=== PATIENT | male | born 1945 | race Caucasian/White ===

== ENCOUNTER 2020-03-10 20:33 | Inpatient (IN) ==
[2020-03-10] MEDS ORDERED: ACETAMINOPHEN 500 MG TAB PO STA (21:20)
[2020-03-10] MEDS ORDERED: SODIUM CHLORIDE 0.9% 1000ML 1,000 ML IV SCH (21:30)
[2020-03-10] MEDS ORDERED: SODIUM CHLORIDE 0.9% 500 ML IV SCH (21:30)
[2020-03-10 22:40] LABS: Basophils # (auto) 0.01 K/uL (0-0.2); Basophils % (auto) 0.3 %; Eosinophils # (auto) 0.01 K/uL (0-0.5); Eosinophils % (auto) 0.3 %; Hematocrit (blood only) 44.3 % (42-52); Hemoglobin 15.2 g/dL (14.0-18.0); Lymphocytes # (auto) 0.73 K/uL (1.2-3.4); Lymphocytes % (auto) 21.2 %; Mean Corpuscular Hgb Conc 34.3 g/dL (32-36); Mean Corpuscular Volume 96.3 fL (80-100); Mean Platelet Volume 10.9 fL (7.4-10.4); Monocytes # (auto) 0.45 K/uL (0.11-0.59); Neutrophils # (auto) 2.25 K/uL (1.4-6.5); Neutrophils % (auto) 65.2 %; Platelet Count 103 K/uL (130-400); RDW Coefficient of Variation 13.5 % (11.5-14.5); RDW Standard Deviation 47.4 fL (36.4-46.3); White Blood Count 3.45 K/uL (4.8-10.8)
[2020-03-10 22:47] LABS: Appearance Urine Clear (Clear); Bilirubin Urine Negative (Negative); Blood Urine Negative (Negative); Color Urine Yellow; Glucose Urine UA Negative (Negative); Ketones Urine Negative (Negative); Leukocyte Esterase Urine Negative (Negative); Nitrite Urine Negative (Negative); Protein Urine Negative (Negative); Specific Gravity Urine 1.011 (1.000-1.030); Urobilinogen Urine Negative (Negative); pH Urine 7.5 (4.5-7.5)
[2020-03-10 22:58] LABS: Alanine Aminotransferase 23 U/L (12-78); Albumin Level 3.1 gm/dl (3.4-5.0); Aspartate Aminotransferase 22 U/L (15-37); BUN Creatinine Ratio 11.9 (10-20); Blood Urea Nitrogen 12 mg/dl (7-18); Calcium 8.2 mg/dl (8.5-10.1); Carbon Dioxide 26 mmol/L (21-32); Chloride 106 mmol/L (98-107); Est GFR (African American) 88.3; Est GFR (Non-African American) 76.2; Glucose 116 mg/dl (70-99); Potassium 3.9 mmol/L (3.5-5.1); Sodium 136 mmol/L (136-145)
[2020-03-10 23:01] LABS: Alkaline Phosphatase 69 U/L (45-117); Bilirubin,Total 0.8 mg/dl (0.2-1); Globulin 3.2 gm/dl (2.5-4.0); Total Protein 6.3 gm/dl (6.4-8.2)
[2020-03-10] MEDS ORDERED: cefTRIAXone SODIUM 2,000 MG/70 ML BAG IV STA (23:12)
[2020-03-10] MEDS ORDERED: AZITHROMYCIN 500 MG in DEXTROSE 5% 250 ML IV STA (23:35)
[2020-03-11 00:08] LABS: D Dimer 1050 ug/L FEU (0-500)
[2020-03-11] MEDS ORDERED: DEXAMETHASONE SOD INJ 10 MG/ML VIAL IV ONE (00:43)
--- NOTE | 2020-03-11 00:51 | History & Physical Report ---
Date of Service March 11, 2020 Assessment & Plan (1) Pneumonia due to 2019 novel coronavirus: Pneumonia due to COVID 19 virus infection- Admit to monitored bed, negative pressure. Give Decadron 10 mg IV now, then 6 mg IV every 8 hours. Ceftriaxone 2 g IV daily. Azithromycin 500 mg IV daily Guaifenesin extended release 600 mg p.o. twice daily. Duonebs Every 2 hours as needed. Present on Admission?: Yes (2) COVID-19 virus infection: See above Associated findings: thrombocytopenia---follow serially elevated D-dimer 1050--ordered CTA chest for PE protocol place on heparin drip, low dose, no bolus Present on Admission?: Yes (3) Chronic indwelling Shannon catheter: Continue. Follow urine culture and sensitivity Present on Admission?: Yes (4) Diabetes mellitus: Hold metformin. Place on Accu-Cheks before meals and at bedtime with NovoLog coverage per scale Present on Admission?: Yes (5) Thrombocytopenia: platelets 103 upon admission, continue to follow closely while on heparin. Present on Admission?: Yes (6) CAD (coronary artery disease): CAD/ status post CABG- follow serial troponins Present on Admission?: Yes (7) Hx of CABG: see above Present on Admission?: Yes History of Present Illness Chief Complaint: The patient presents to the emergency department with complaint of worsening shortness of breath and intermittently productive cough over the past few days, and had an episode of loose stools yesterday. Primary Care Provider: NO PCP The patient is a 74-year-old male with a past medical history including diabetes mellitus, and BPH with LUTS who presents with the above symptoms. He did undergo work-up in the emergency department including COVID-19 test which was positive, and d-dimer was elevated at 1050. He also does have a chronic indwelling Shannon catheter. Allergies Allergy/AdvReac Type Severity Reaction Status Date / Time Sulfa (Sulfonamide Allergy Hives Verified 03/10/20 23:11 Antibiotics) Home Medications Home Medications Medication Instructions Recorded Confirmed Type metformin 500 mg PO DAILY 03/10/20 03/10/20 History Past Med/Surg History Medical History (Updated 03/11/20 @ 01:46 by Alexis Blount MD) CAD (coronary artery disease) (Acute) Diabetes mellitus (Acute) Urinary incontinence Surgical History (Updated 03/11/20 @ 01:46 by Alexis Blount MD) Hx of CABG (Acute) Social History Smoking Status: Former smoker Preferred Language: German Feels Safe at Home: Yes Review of Systems Review of Systems: The patient denies palpitations, lower extremity swelling, sore throat, fevers, chills, sweats, nausea, vomiting, constipation, abdominal pain, pelvic pain, blood in urine or stool, lightheadedness, dizziness, headache, memory loss, loss of consciousness, rash, abnormal bruising or bleeding, imbalance, focal or generalized weakness, numbness or tingling in arms or legs, generalized arthralgias or myalgias, back or neck pain, or night sweats. The review of systems is otherwise negative other than for that already noted above, and at least 10 systems have been reviewed. Physical Exam Physical Exam: The patient is awake, alert and oriented 3, well developed and well nourished, normocephalic and atraumatic, sitting upright in bed and in no acute distress. HEENT--PERRL, EOMI, mucous membranes and oropharynx normal Neck--supple. No JVD. No bruits. Thyroid normal, trachea midline, no adenopathy. Heart--normal S1 and S2. No murmurs, rubs or gallops. Lungs--coarse breath sounds right base > left. no respiratory distress, no accessory muscle use. Abdomen--normal bowel sounds and soft. Nontender. Nondistended. Extremities--no cyanosis or clubbing. No edema. Dermatologic--normal skin turgor, normal color, no abnormal lymph nodes, no rash. Neurologic--cranial nerves II through XII grossly intact. Rheumatologic--normal range of motion. Psychiatric--normal affect. Results & Data Results & Data ([facility]) Vital Signs (Past 12 Hours) Vital Signs Temp Pulse Resp BP Pulse Ox 03/11/20 00:20 98.8 F 03/11/20 00:01 61 18 134/72 96 03/10/20 23:30 56 L 19 127/70 94 03/10/20 23:00 55 L 24 142/70 H 94 03/10/20 22:31 58 L 17 96 03/10/20 22:30 57 L 17 143/71 H 96 03/10/20 22:15 59 L 18 03/10/20 22:13 60 19 136/70 03/10/20 20:44 100.6 F H 69 18 119/71 92 Laboratory Results Laboratory Results WBC 3.45 K/uL (4.8-10.8) L 03/10/20 22:00 RBC 4.60 M/uL (4.7-6.1) L 03/10/20 22:00 Hgb 15.2 g/dL (14.0-18.0) 03/10/20 22:00 Hct 44.3 % (42-52) 03/10/20 22:00 MCV 96.3 fL (80-100) 03/10/20 22:00 MCH 33.0 pg (25-34) 03/10/20 22:00 MCHC 34.3 g/dL (32-36) 03/10/20 22:00 RDW Std Deviation 47.4 fL (36.4-46.3) H 03/10/20 22:00 RDW Coeff of Mona 13.5 % (11.5-14.5) 03/10/20 22:00 Plt Count 103 K/uL (130-400) L 03/10/20 22:00 MPV 10.9 fL (7.4-10.4) H 03/10/20 22:00 Immature Gran % (Auto) 0.0 % 03/10/20 22:00 Neut % (Auto) 65.2 % 03/10/20 22:00 Lymph % (Auto) 21.2 % 03/10/20 22:00 [place] % (Auto) 13.0 % 03/10/20 22:00 Eos % (Auto) 0.3 % 03/10/20 22:00 Baso % (Auto) 0.3 % 03/10/20 22:00 Neut # (Auto) 2.25 K/uL (1.4-6.5) 03/10/20 22:00 Lymph # (Auto) 0.73 K/uL (1.2-3.4) L 03/10/20 22:00 [place] # (Auto) 0.45 K/uL (0.11-0.59) 03/10/20 22:00 Eos # (Auto) 0.01 K/uL (0-0.5) 03/10/20 22:00 Baso # (Auto) 0.01 K/uL (0-0.2) 03/10/20 22:00 Immature Gran # (Auto) 0.00 K/uL (0.00-0.02) 03/10/20 22:00 D-Dimer 1050 ug/L FEU (0-500) H* 03/10/20 22:00 Sodium 136 mmol/L (136-145) 03/10/20 22:00 Potassium 3.9 mmol/L (3.5-5.1) 03/10/20 22:00 Chloride 106 mmol/L (98-107) 03/10/20 22:00 Carbon Dioxide 26 mmol/L (21-32) 03/10/20 22:00 Anion Gap 5.0 (3-11) 03/10/20 22:00 BUN 12 mg/dl (7-18) 03/10/20 22:00 Creatinine 0.98 mg/dl (0.6-1.4) 03/10/20 22:00 Est Cr Clr Drug Dosing Not Reportable 03/10/20 22:00 Est GFR ( Amer) 88.3 03/10/20 22:00 Est GFR (Non-Af Amer) 76.2 03/10/20 22:00 BUN/Creatinine Ratio 11.9 (10-20) 03/10/20 22:00 Glucose 116 mg/dl (70-99) H 03/10/20 22:00 Lactate 1.1 mmol/L (0.4-2.0) 03/11/20 00:05 Calcium 8.2 mg/dl (8.5-10.1) L 03/10/20 22:00 Total Bilirubin 0.8 mg/dl (0.2-1) 03/10/20 22:00 AST 22 U/L (15-37) 03/10/20 22:00 ALT 23 U/L (12-78) 03/10/20 22:00 Alkaline Phosphatase 69 U/L (45-117) 03/10/20 22:00 Total Protein 6.3 gm/dl (6.4-8.2) L 03/10/20 22:00 Albumin 3.1 gm/dl (3.4-5.0) L 03/10/20 22:00 Globulin 3.2 gm/dl (2.5-4.0) 03/10/20 22:00 Albumin/Globulin Ratio 1.0 (0.9-2) 03/10/20 22:00 Urine Color Yellow 03/10/20 21:55 Urine Appearance Clear (Clear) 03/10/20 21:55 Urine pH 7.5 (4.5-7.5) 03/10/20 21:55 Ur Specific [place] 1.011 (1.000-1.030) 03/10/20 21:55 Urine Protein Negative (Negative) 03/10/20 21:55 Urine Glucose (UA) Negative (Negative) 03/10/20 21:55 Urine Ketones Negative (Negative) 03/10/20 21:55 Urine Blood Negative (Negative) 03/10/20 21:55 Urine Nitrite Negative (Negative) 03/10/20 21:55 Urine Bilirubin Negative (Negative) 03/10/20 21:55 Urine Urobilinogen Negative (Negative) 03/10/20 21:55 Ur Leukocyte Esterase Negative (Negative) 03/10/20 21:55 COVID-19 Eval Order Covid19 Done at [facility] 03/10/20 Unknown COVID-19 PCR POSITIVE (Negative) A* 03/10/20 Unknown Nasopharyn COVID-19 PCR Cancelled 03/10/20 22:10 Sputum COVID-19 PCR Cancelled 03/10/20 22:10 Diagnostic Findings [facility] Patient: COURTNEY GRIFFITHS (Male) : 47 Status: ER Date: 03/11/20 01:18 Room #: History: R/O PE, COUGH POSITIVE COVID Slices: 755 Priors: Tech: Jerome Crump @ [phone] Exams: CTA CHEST Contrast: IV Amt: 118 ML OPTIRAY 320 Accession Numbers: [id number] Preliminary Findings Only See Final Report For Complete Findings CTA CHEST: The thoracic aorta is mildly calcified but nondilated. There is no aneurysm or dissection. The pulmonary arterial tree is well opacified with contrast. No pulmonary emboli are identified. Previous sternotomy, likely CABG. There is mild cardiomegaly and severe coronary calcification. No pericardial effusion is seen. Lung windows reveal scattered rounded areas of ground glass opacity and interstitial infiltrates in the periphery of the lungs bilaterally consistent with mild Covid-19 pneumonia. There is mild emphysema as well. No pneumothorax is seen. There is a trace amount of pleural fluid measuring 2 mm bilaterally. Limited images of the upper rounded there is a cholecystectomy changes. There is also reflux of contrast into the hepatic vein suggesting mild CHF. Mild multilevel degenerative changes in the thoracic spine. No fracture or bone lesion. Radiologist: Mario Taylor MD Study ready at 01:22 and initial results transmitted at 01:41 *This report constitutes a preliminary interpretation only. Non-acute findings felt to be unrelated to the clinical presentation may not be discussed in this report. The study will be interpreted and a final report will be generated by the local Radiologist the following shift. To reach the hospital radiology department call [phone]. If a discrepancy is found between the preliminary and final interpretations of this study, please notify us via our Client Portal at [email or web address].You can also fax this report with a description of the discrepancy, or include the final report, to our daytime fax number [phone].If faxing, please indicate the severity of discrepancy using one of the following categories: [ ] 1 - Agree/Informational [ ] 2 - Unlikely to Affect Management [ ] 3 - Possible Eventual Change of Management [ ] 4 - Probable Immediate Change of Management For all other patient related information, please fax us at [phone]. [id number] Code Status & VTE Plan Code Status Full code VTE Prophylaxis Plan VTE Prophylaxis will be ordered: Yes PG Care Time/CCT Total # of Minutes Spent Total Time Spent with Patient: Total time spent is greater than 50% in coordination of care (as documented) at patient's floor/unit and/or counseling patient: Coding Level of Care Code 45637 Initial Inpt Care Lvl 3 Diagnoses Pneumonia due to 2019 novel coronavirus U07.1; J12.89 COVID-19 virus infection U07.1 Chronic indwelling Shannon catheter Z97.8 Diabetes mellitus E11.9 Thrombocytopenia D69.6 CAD (coronary artery disease) I25.10 Associated angina: without angina Coronary Disease-Associated Artery/Lesion type: unspecified vessel or lesion type [place] vs. transplanted heart: [place] heart Hx of CABG Z95.1 (1) CAD (coronary artery disease) Associated angina: without angina Coronary Disease-Associated Artery/Lesion type: unspecified vessel or lesion type [place] vs. transplanted heart: [place] heart Qualified Code(s): I25.10 - Atherosclerotic heart disease of [place] coronary artery without angina pectoris
[2020-03-11 01:15] LABS: Partial Thromboplastin Ratio 1.1; Partial Thromboplastin Time 29.4 Seconds (21.0-31.0)
[2020-03-11] MEDS ORDERED: OPTIRAY 320 125ml IV ONE (01:20)
--- NOTE | 2020-03-11 01:24 | Emergency Department Note ---
History of Present Illness General Chief complaint: Fever Stated complaint: FEVER,POSSIBLE STREP, SORE THROAT Time Seen by Provider: 03/10/20 20:52 Source: patient and RN notes reviewed Mode of arrival: ambulatory Limitations: no limitations History of Present Illness Provider complaint: Fever, sore throat, cough Maximum Pain Intensity: 0 This patient is a 74-year-old male who presents to the emergency department with complaints of sore throat, fever, cough. Patient states he drove here from [place] to visit his daughter. Earlier today he began to develop some generalized ill feelings. His daughter had planned an offloading jeep experience which he felt guilty postponing. He did the excursion despite feeling ill. When they returned home he was noted to be febrile. He states he has been coughing with mild shortness of breath. He does believe it is productive. Patient denies any nausea, significant abdominal pain but does admit to an episode of runny diarrhea. He has not had any further diarrhea since earlier this afternoon. He denies any blood in the stools. Of note the patient does have a chronic condom catheter in place for urinary dribbling after prostate surgery. Home Medications Home Medications Medication Instructions Recorded Confirmed Type metformin 500 mg PO DAILY 03/10/20 03/10/20 History Allergies Allergy/AdvReac Type Severity Reaction Status Date / Time Sulfa (Sulfonamide Allergy Hives Verified 03/10/20 23:11 Antibiotics) Past Med/Surg History Medical History (Updated 03/11/20 @ 01:34 by Cande Plunkett MD) Diabetes mellitus (Acute) Urinary catheter in place Condom catheter Urinary incontinence Social History Smoking Status: Former smoker Preferred Language: Turkmen Feels Safe at Home: Yes Review of Systems See HPI for pertinent positives & negatives. and A total of 10 systems reviewed and were otherwise negative Physical Exam Vital Signs Vital Signs - 24 hr 03/10/20 20:44 03/10/20 22:13 03/10/20 22:15 Temperature 38.1 C H Temperature Source Oral Pulse Rate 69 60 59 L Pulse Rate from SpO2 Sensor Pulse Rhythm Regular Pulse Strength Normal Respiratory Rate 18 19 18 Respiratory Effort / Characteristics Non-Labored Spontaneous Respiratory Depth Normal Respiratory Pattern Regular Blood Pressure 119/71 136/70 Blood Pressure Mean 87 101 Blood Pressure Position Sitting Pulse Oximetry 92 Oxygen Delivery Method Room Air Sepsis Recent Fever Within 48 Hours Yes Sepsis New/Unexplained Change in Mental Status No Sepsis Action Taken by Nursing No Action Required 03/10/20 22:30 03/10/20 22:31 03/10/20 23:00 Temperature Temperature Source Pulse Rate 57 L 58 L 55 L Pulse Rate from SpO2 Sensor 57 L 58 L 55 L Pulse Rhythm Pulse Strength Respiratory Rate 17 17 24 Respiratory Effort / Characteristics Respiratory Depth Respiratory Pattern Blood Pressure 143/71 H 142/70 H Blood Pressure Mean 96 110 Blood Pressure Position Pulse Oximetry 96 96 94 Oxygen Delivery Method Room Air Sepsis Recent Fever Within 48 Hours Sepsis New/Unexplained Change in Mental Status Sepsis Action Taken by Nursing 03/10/20 23:30 03/11/20 00:01 03/11/20 00:20 Temperature 37.1 C Temperature Source Oral Pulse Rate 56 L 61 Pulse Rate from SpO2 Sensor 55 L 59 L Pulse Rhythm Pulse Strength Respiratory Rate 19 18 Respiratory Effort / Characteristics Respiratory Depth Respiratory Pattern Blood Pressure 127/70 134/72 Blood Pressure Mean 99 108 Blood Pressure Position Pulse Oximetry 94 96 Oxygen Delivery Method Room Air Sepsis Recent Fever Within 48 Hours Sepsis New/Unexplained Change in Mental Status Sepsis Action Taken by Nursing Vital signs reviewed. Noted to be febrile. General: Somewhat ill-appearing 74-year-old male, in no significant distress. Sitting up at the bedside. HEENT: No scleral icterus, PERRLA, neck supple. Atraumatic. Cardiovascular: Regular rate and rhythm, no extra sounds. Pulmonary: Faint crackles bilaterally, normal work of breathing. Abdomen: Soft, nontender, nondistended, positive bowel sounds. Musculoskeletal: Atraumatic, no peripheral edema. : Condom catheter in place draining a dark but clear yellow urine. Neurologic: Patient awake alert and oriented x 3 Skin: Warm, dry, no rash Course Administered Medications Sodium Chloride (Nss 1000ml) 1,000 mls @ 100 mls/hr IV .Q10H VERONIKA Stop: 03/11/20 07:29 Last Admin: 03/10/20 22:52 Dose: 100 mls/hr Documented by: [id number] Azithromycin 500 mg/ Dextrose 255 mls @ 125 mls/hr IV NOW STA Stop: 03/11/20 01:37 Last Admin: 03/11/20 00:17 Dose: 125 mls/hr Documented by: [id number] Discontinued Medications Acetaminophen (Tylenol) 1,000 mg PO ONE STA Stop: 03/10/20 21:21 Last Admin: 08/11/20 22:52 Dose: 1,000 mg Documented by: [id number] Sodium Chloride (Nss) 500 mls @ 999 mls/hr IV .Q31M VERONIKA Stop: 03/10/20 22:00 Last Infusion: 03/10/20 23:28 Dose: 0 mls/hr Documented by: [id number] Admin: 03/10/20 22:52 Dose: 999 mls/hr Documented by: [id number] Ceftriaxone Sodium (Rocephin) 2,000 mg in 70 mls @ 140 mls/hr IV NOW STA Stop: 03/10/20 23:41 Last Infusion: 03/11/20 00:24 Dose: 0 mls/hr Documented by: [id number] Admin: 03/10/20 23:54 Dose: 140 mls/hr Documented by: [id number] Ioversol (Optiray 320 125ml) 125 ml IV ONCE ONE Stop: 03/11/20 01:21 Last Admin: 03/11/20 01:20 Dose: 118 ml Documented by: [id number] Medical Decision Making Differential Diagnosis Differential diagnosis: Etiologies such as viral syndrome, otitis, pharyngitis, pneumonia, influenza, meningitis, urinary tract infection, septic arthritis, soft tissue infectious process, intra-abdominal process, sepsis, bacteremia, as well as others were entertained. Home Medications Current Medication List: was personally reviewed by me Laboratory Data Attestation: I reviewed the patient's lab results. Result diagrams: 03/10/20 22:00 03/10/20 22:00 Lab Results 03/10/20 03/10/20 03/10/20 Range/Units 21:55 22:00 22:00 WBC 3.45 L (4.8-10.8) K/uL RBC 4.60 L (4.7-6.1) M/uL Hgb 15.2 (14.0-18.0) g/dL Hct 44.3 (42-52) % MCV 96.3 (80-100) fL MCH 33.0 (25-34) pg MCHC 34.3 (32-36) g/dL RDW Std Deviation 47.4 H (36.4-46.3) fL RDW Coeff of Mona 13.5 (11.5-14.5) % Plt Count 103 L (130-400) K/uL MPV 10.9 H (7.4-10.4) fL Immature Gran % (Auto) 0.0 % Neut % (Auto) 65.2 % Lymph % (Auto) 21.2 % [place] % (Auto) 13.0 % Eos % (Auto) 0.3 % Baso % (Auto) 0.3 % Neut # (Auto) 2.25 (1.4-6.5) K/uL Lymph # (Auto) 0.73 L (1.2-3.4) K/uL [place] # (Auto) 0.45 (0.11-0.59) K/uL Eos # (Auto) 0.01 (0-0.5) K/uL Baso # (Auto) 0.01 (0-0.2) K/uL Immature Gran # (Auto) 0.00 (0.00-0.02) K/uL APTT (21.0-31.0) Seconds PTT Ratio D-Dimer (0-500) ug/L FEU Sodium 136 (136-145) mmol/L Potassium 3.9 (3.5-5.1) mmol/L Chloride 106 (98-107) mmol/L Carbon Dioxide 26 (21-32) mmol/L Anion Gap 5.0 (3-11) BUN 12 (7-18) mg/dl Creatinine 0.98 (0.6-1.4) mg/dl Est Cr Clr Drug Dosing Not Reportable Est GFR ( Amer) 88.3 Est GFR (Non-Af Amer) 76.2 BUN/Creatinine Ratio 11.9 (10-20) Glucose 116 H (70-99) mg/dl Lactate (0.4-2.0) mmol/L Calcium 8.2 L (8.5-10.1) mg/dl Total Bilirubin 0.8 (0.2-1) mg/dl AST 22 (15-37) U/L ALT 23 (12-78) U/L Alkaline Phosphatase 69 (45-117) U/L Total Protein 6.3 L (6.4-8.2) gm/dl Albumin 3.1 L (3.4-5.0) gm/dl Globulin 3.2 (2.5-4.0) gm/dl Albumin/Globulin Ratio 1.0 (0.9-2) Urine Color Yellow Urine Appearance Clear (Clear) Urine pH 7.5 (4.5-7.5) Ur Specific [place] 1.011 (1.000-1.030) Urine Protein Negative (Negative) Urine Glucose (UA) Negative (Negative) Urine Ketones Negative (Negative) Urine Blood Negative (Negative) Urine Nitrite Negative (Negative) Urine Bilirubin Negative (Negative) Urine Urobilinogen Negative (Negative) Ur Leukocyte Esterase Negative (Negative) COVID-19 Eval Order COVID-19 PCR (Negative) Nasopharyn COVID-19 PCR Sputum COVID-19 PCR 03/10/20 03/10/20 03/10/20 Range/Units 22:00 22:10 22:10 WBC (4.8-10.8) K/uL RBC (4.7-6.1) M/uL Hgb (14.0-18.0) g/dL Hct (42-52) % MCV (80-100) fL MCH (25-34) pg MCHC (32-36) g/dL RDW Std Deviation (36.4-46.3) fL RDW Coeff of Mona (11.5-14.5) % Plt Count (130-400) K/uL MPV (7.4-10.4) fL Immature Gran % (Auto) % Neut % (Auto) % Lymph % (Auto) % [place] % (Auto) % Eos % (Auto) % Baso % (Auto) % Neut # (Auto) (1.4-6.5) K/uL Lymph # (Auto) (1.2-3.4) K/uL [place] # (Auto) (0.11-0.59) K/uL Eos # (Auto) (0-0.5) K/uL Baso # (Auto) (0-0.2) K/uL Immature Gran # (Auto) (0.00-0.02) K/uL APTT (21.0-31.0) Seconds PTT Ratio D-Dimer 1050 H* (0-500) ug/L FEU Sodium (136-145) mmol/L Potassium (3.5-5.1) mmol/L Chloride (98-107) mmol/L Carbon Dioxide (21-32) mmol/L Anion Gap (3-11) BUN (7-18) mg/dl Creatinine (0.6-1.4) mg/dl Est Cr Clr Drug Dosing Est GFR ( Amer) Est GFR (Non-Af Amer) BUN/Creatinine Ratio (10-20) Glucose (70-99) mg/dl Lactate (0.4-2.0) mmol/L Calcium (8.5-10.1) mg/dl Total Bilirubin (0.2-1) mg/dl AST (15-37) U/L ALT (12-78) U/L Alkaline Phosphatase (45-117) U/L Total Protein (6.4-8.2) gm/dl Albumin (3.4-5.0) gm/dl Globulin (2.5-4.0) gm/dl Albumin/Globulin Ratio (0.9-2) Urine Color Urine Appearance (Clear) Urine pH (4.5-7.5) Ur Specific [place] (1.000-1.030) Urine Protein (Negative) Urine Glucose (UA) (Negative) Urine Ketones (Negative) Urine Blood (Negative) Urine Nitrite (Negative) Urine Bilirubin (Negative) Urine Urobilinogen (Negative) Ur Leukocyte Esterase (Negative) COVID-19 Eval Order Cancelled COVID-19 PCR (Negative) Nasopharyn COVID-19 PCR Cancelled Sputum COVID-19 PCR Cancelled 03/10/20 03/10/20 03/11/20 Range/Units Unknown Unknown 00:05 WBC (4.8-10.8) K/uL RBC (4.7-6.1) M/uL Hgb (14.0-18.0) g/dL Hct (42-52) % MCV (80-100) fL MCH (25-34) pg MCHC (32-36) g/dL RDW Std Deviation (36.4-46.3) fL RDW Coeff of Mona (11.5-14.5) % Plt Count (130-400) K/uL MPV (7.4-10.4) fL Immature Gran % (Auto) % Neut % (Auto) % Lymph % (Auto) % [place] % (Auto) % Eos % (Auto) % Baso % (Auto) % Neut # (Auto) (1.4-6.5) K/uL Lymph # (Auto) (1.2-3.4) K/uL [place] # (Auto) (0.11-0.59) K/uL Eos # (Auto) (0-0.5) K/uL Baso # (Auto) (0-0.2) K/uL Immature Gran # (Auto) (0.00-0.02) K/uL APTT (21.0-31.0) Seconds PTT Ratio D-Dimer (0-500) ug/L FEU Sodium (136-145) mmol/L Potassium (3.5-5.1) mmol/L Chloride (98-107) mmol/L Carbon Dioxide (21-32) mmol/L Anion Gap (3-11) BUN (7-18) mg/dl Creatinine (0.6-1.4) mg/dl Est Cr Clr Drug Dosing Est GFR ( Amer) Est GFR (Non-Af Amer) BUN/Creatinine Ratio (10-20) Glucose (70-99) mg/dl Lactate 1.1 (0.4-2.0) mmol/L Calcium (8.5-10.1) mg/dl Total Bilirubin (0.2-1) mg/dl AST (15-37) U/L ALT (12-78) U/L Alkaline Phosphatase (45-117) U/L Total Protein (6.4-8.2) gm/dl Albumin (3.4-5.0) gm/dl Globulin (2.5-4.0) gm/dl Albumin/Globulin Ratio (0.9-2) Urine Color Urine Appearance (Clear) Urine pH (4.5-7.5) Ur Specific [place] (1.000-1.030) Urine Protein (Negative) Urine Glucose (UA) (Negative) Urine Ketones (Negative) Urine Blood (Negative) Urine Nitrite (Negative) Urine Bilirubin (Negative) Urine Urobilinogen (Negative) Ur Leukocyte Esterase (Negative) COVID-19 Eval Order Covid19 Done at [facility] COVID-19 PCR POSITIVE A* (Negative) Nasopharyn COVID-19 PCR Sputum COVID-19 PCR 03/11/20 Range/Units 00:05 WBC (4.8-10.8) K/uL RBC (4.7-6.1) M/uL Hgb (14.0-18.0) g/dL Hct (42-52) % MCV (80-100) fL MCH (25-34) pg MCHC (32-36) g/dL RDW Std Deviation (36.4-46.3) fL RDW Coeff of Mona (11.5-14.5) % Plt Count (130-400) K/uL MPV (7.4-10.4) fL Immature Gran % (Auto) % Neut % (Auto) % Lymph % (Auto) % [place] % (Auto) % Eos % (Auto) % Baso % (Auto) % Neut # (Auto) (1.4-6.5) K/uL Lymph # (Auto) (1.2-3.4) K/uL [place] # (Auto) (0.11-0.59) K/uL Eos # (Auto) (0-0.5) K/uL Baso # (Auto) (0-0.2) K/uL Immature Gran # (Auto) (0.00-0.02) K/uL APTT 29.4 (21.0-31.0) Seconds PTT Ratio 1.1 D-Dimer (0-500) ug/L FEU Sodium (136-145) mmol/L Potassium (3.5-5.1) mmol/L Chloride (98-107) mmol/L Carbon Dioxide (21-32) mmol/L Anion Gap (3-11) BUN (7-18) mg/dl Creatinine (0.6-1.4) mg/dl Est Cr Clr Drug Dosing Est GFR ( Amer) Est GFR (Non-Af Amer) BUN/Creatinine Ratio (10-20) Glucose (70-99) mg/dl Lactate (0.4-2.0) mmol/L Calcium (8.5-10.1) mg/dl Total Bilirubin (0.2-1) mg/dl AST (15-37) U/L ALT (12-78) U/L Alkaline Phosphatase (45-117) U/L Total Protein (6.4-8.2) gm/dl Albumin (3.4-5.0) gm/dl Globulin (2.5-4.0) gm/dl Albumin/Globulin Ratio (0.9-2) Urine Color Urine Appearance (Clear) Urine pH (4.5-7.5) Ur Specific [place] (1.000-1.030) Urine Protein (Negative) Urine Glucose (UA) (Negative) Urine Ketones (Negative) Urine Blood (Negative) Urine Nitrite (Negative) Urine Bilirubin (Negative) Urine Urobilinogen (Negative) Ur Leukocyte Esterase (Negative) COVID-19 Eval Order COVID-19 PCR (Negative) Nasopharyn COVID-19 PCR Sputum COVID-19 PCR Imaging Data Attestation: I personally reviewed and interpreted this imaging study as follows: My Impression: Chest x-ray: Patchy infiltrate on the left lower lung field and right middle lobe. Post surgical changes noted to the sternum. ECG Data Attestation: I personally reviewed and interpreted this ECG as follows: Indication: + chest pain and + SOB/dyspnea Rate (beats per minute): 73 Rhythm: + sinus bradycardia ECG Intervals/blocks: + Normal QT-c ECG ST segments: + T-wave inversions (Inferior) and + Nonspecific ST abnormalities ECG Findings: + Q waves (Inferior); no PACs and no PVCs Blood Pressure Blood Pressure Findings: Normal blood pressure Blood Pressure Disposition: did not require urgent referral MDM Narrative This patient was evaluated and appeared to be in no significant distress. Patient does appear to be somewhat ill and is noted to have a fever. Patient was given p.o. Tylenol. An order for cardiac monitoring was placed and the pa tient is noted to be in a sinus bradycardia at 61 bpm. Patient's oxygen saturations are stable. Laboratory work was obtained and reveals a mild leukopenia. Chest x-ray was performed and to my interpretation reveals patchy infiltrates suggestive of pneumonia. Patient was given IV ceftriaxone and IV azithromycin after blood cultures were obtained. A COVID swab was performed and is positive on rapid testing. Patient did receive IV hydration and was informed of the findings. I did contact his daughter at his request. She was informed of the findings. The patient will be evaluated by the hospitalist service for admission and further management. Impression & Plan Pneumonia due to 2019 novel coronavirus, Diabetes mellitus, CAD (coronary artery disease), Hx of CABG Discharge Plan Visit Data Chief Complaint: Fever Stated Complaint: FEVER,POSSIBLE STREP, SORE THROAT ED Provider: Cande Plunkett Discharge Problem: Pneumonia due to 2019 novel coronavirus, Diabetes mellitus, CAD (coronary artery disease), Hx of CABG Forms Stand Alone Forms: My [facility] [employer] Prescriptions Prescriptions: No Action metformin 500 mg tablet extended release 24 hr 500 mg PO DAILY RF: 0 Discharge Problem: Diabetes mellitus Qualifiers: Diabetes mellitus type: type 2 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 transplanted heart: [place] heart Associated angina: without angina Qualified Code(s): I25.10 - Atherosclerotic heart disease of [place] coronary artery without angina pectoris
[2020-03-11] MEDS ORDERED: HEPARIN 25000 UNIT/500 ML D5W IV ONE (01:33)
[2020-03-11] MEDS: Heparin IV Low Dose *NO* Bolus IV SCH ×5 (01:42→04:50)
[2020-03-11] MEDS: HEPARIN SODIUM/DEXTROSE 25,000 UNITS/500 ML BAG IV SCH (01:55)
--- NOTE | 2020-03-11 06:14 | CT Scan Report ---
CT angio chest PE protocol CT DOSE: 737.97 mGy.cm HISTORY: Chest pain. Dyspnea. PE TECHNIQUE: Multiaxial CT images of the chest were performed following the intravenous administration of contrast to evaluate the pulmonary arteries. Maximal intensity projection images were also obtaine d. A dose lowering technique was utilized adhering to the principles of ALARA. COMPARISON STUDY: None. FINDINGS: There is a normal caliber thoracic aorta with no evidence for dissection. There is no evide nce for pulmonary embolus. No pleural effusions. No pneumothorax. The liver and spleen are unremarkab le. No mediastinal or hilar lymphadenopathy. Patchy parenchymal groundglass parenchymal infiltrative changes throughout both hemithoraces. IMPRESSION: No evidence for pulmonary embolus. Diffuse bilateral patchy parenchymal infiltrative change. ACT 112: Negative or not required by law. The above report was generated using voice recognition software. It may contain grammatical, syntax or spelling errors. Electronically signed by: Mick Pinzon M.D. 03/11/2020 6:13 AM
[2020-03-11] MEDS: NSS + 20MEQ KCL 20 MEQ/1,000 ML BAG IV SCH ×2 (06:25→16:36)
--- NOTE | 2020-03-11 07:29 | XRay Report ---
XR chest 1V portable CLINICAL HISTORY: SOB, CP dyspnea COMPARISON STUDY: No previous studies for comparison. FINDINGS: Mild cardiomegaly. Prior median sternotomy. Interstitial infiltrate left mid to lower lung. Right lung is considered clear for IMPRESSION: Mild cardiomegaly. Interstitial infiltrate left mid and lower lung. ACT 112: Negative or not required by law. The above report was generated using voice recognition software. It may contain grammatical, syntax or spelling errors. Electronically signed by: Mick Pinzon M.D. 03/11/2020 7:28 AM
[2020-03-11 08:27] LABS: Basophils # (auto) 0.01 K/uL (0-0.2); Basophils % (auto) 0.4 %; Hematocrit (blood only) 52.5 % (42-52); Hemoglobin 17.7 g/dL (14.0-18.0); Immature Granulocytes # (auto) 0.01 K/uL (0.00-0.02); Immature Granulocytes % (auto) 0.4 %; Lymphocytes # (auto) 0.78 K/uL (1.2-3.4); Lymphocytes % (auto) 28.9 %; Mean Corpuscular Hemoglobin 32.6 pg (25-34); Mean Corpuscular Hgb Conc 33.7 g/dL (32-36); Mean Corpuscular Volume 96.7 fL (80-100); Mean Platelet Volume 11.1 fL (7.4-10.4); Monocytes # (auto) 0.14 K/uL (0.11-0.59); Monocytes % (auto) 5.2 %; Neutrophils # (auto) 1.76 K/uL (1.4-6.5); Neutrophils % (auto) 65.1 %; Platelet Count 116 K/uL (130-400); RDW Coefficient of Variation 13.6 % (11.5-14.5); RDW Standard Deviation 48.5 fL (36.4-46.3); Red Blood Count 5.43 M/uL (4.7-6.1)
[2020-03-11] MEDS: guaiFENesin 600 MG TABCR PO SCH ×2 (08:28→20:27)
[2020-03-11 08:40] LABS: Prothrombin Time 10.9 Seconds (9.0-12.0)
[2020-03-11 08:52] LABS: Alanine Aminotransferase 24 U/L (12-78); Albumin Level 3.4 gm/dl (3.4-5.0); Aspartate Aminotransferase 25 U/L (15-37); BUN Creatinine Ratio 9.9 (10-20); Blood Urea Nitrogen 12 mg/dl (7-18); Calcium 8.5 mg/dl (8.5-10.1); Carbon Dioxide 28 mmol/L (21-32); Chloride 104 mmol/L (98-107); Creatinine Clr Calc Pharmacy 70.6 ml/min; Est GFR (Non-African American) 62.1; Glucose 247 mg/dl (70-99); Potassium 4.2 mmol/L (3.5-5.1); Sodium 137 mmol/L (136-145)
[2020-03-11 08:57] LABS: Albumin Globulin Ratio 0.9 (0.9-2); Alkaline Phosphatase 79 U/L (45-117); Bilirubin,Total 0.7 mg/dl (0.2-1); Globulin 3.9 gm/dl (2.5-4.0); Total Protein 7.3 gm/dl (6.4-8.2); Troponin I < 0.015 ng/ml (0-0.045)
[2020-03-11 09:12] LABS: Partial Thromboplastin Ratio 1.7
[2020-03-11 09:14] LABS: Partial Thromboplastin Time 47.3 Seconds (21.0-31.0)
[2020-03-11] MEDS ORDERED: REMDESIVIR 200 mg: Day 1 IV ONE (12:30)
[2020-03-11 13:30] LABS: Alanine Aminotransferase 24 U/L (12-78); Alkaline Phosphatase 70 U/L (45-117); Aspartate Aminotransferase 22 U/L (15-37); Bilirubin Direct 0.1 mg/dl (0-0.2); Bilirubin,Total 0.6 mg/dl (0.2-1); C Reactive Protein 2.39 mg/dl (0-0.29); Ferritin 129.7 ng/ml (8-388); Total Protein 6.5 gm/dl (6.4-8.2); Troponin I < 0.015 ng/ml (0-0.045)
[2020-03-11] MEDS: NSS 30mL Flush, Days 1-5 IV SCH (15:07)
[2020-03-11] MEDS: cefTRIAXone SODIUM 2,000 MG in DEXTROSE 5% 50 ML IV SCH (20:23)
[2020-03-11] MEDS: INSULIN ASPART 100 UNITS/ML 3 ML PEN SC SCH (20:45)
[2020-03-11] MEDS ORDERED: CARBOHYDRATES FOR HYPOGLYCEMIA PO PRN (20:49)
[2020-03-11] MEDS ORDERED: DEXTROSE 50% 50 ML SYRINGE IV PRN (20:49)
[2020-03-11] MEDS ORDERED: GLUCAGON FOR INJ 1 MG VIAL SQ PRN (20:49)
[2020-03-11] MEDS ORDERED: GLUCOSE 40% GEL 15 GM TUBE PO PRN (21:00)
[2020-03-11] MEDS ORDERED: GLUCOSE 10 TABS/TUBE PO PRN (21:00)
[2020-03-11] MEDS ORDERED: DOCUSATE SODIUM 100 MG CAP PO ONE (21:01)
[2020-03-11] MEDS: AZITHROMYCIN 500 MG in DEXTROSE 5% 250 ML IV SCH (21:34)
[2020-03-12] MEDS: NSS + 20MEQ KCL 20 MEQ/1,000 ML BAG IV SCH ×3 (00:43→13:16)
[2020-03-12] MEDS: HEPARIN SODIUM/DEXTROSE 25,000 UNITS/500 ML BAG IV SCH ×2 (01:00→02:27)
--- NOTE | 2020-03-12 06:07 | Electrocardiogram Report ---
Test Reason : Blood Pressure : / mmHG Vent. Rate : 058 BPM Atrial Rate : 058 BPM P-R Int : 204 ms QRS Dur : 098 ms QT Int : 402 ms P-R-T Axes : 044 -19 -11 degrees QTc Int : 394 ms Sinus bradycardia Inferior infarct , age undetermined Nonspecific T wave abnormality Abnormal ECG No previous ECGs available Confirmed by Mñeo Coleman ([id number]) on 03/12/2020 6:07:46 AM Referred By: REFERRED SELF Confirmed By:Meño Coleman
[2020-03-12 06:34] LABS: Basophils # (auto) 0.01 K/uL (0-0.2); Basophils % (auto) 0.2 %; Hematocrit (blood only) 44.6 % (42-52); Hemoglobin 15.1 g/dL (14.0-18.0); Immature Granulocytes # (auto) 0.01 K/uL (0.00-0.02); Immature Granulocytes % (auto) 0.2 %; Lymphocytes # (auto) 0.86 K/uL (1.2-3.4); Lymphocytes % (auto) 15.3 %; Mean Corpuscular Hemoglobin 32.1 pg (25-34); Mean Corpuscular Hgb Conc 33.9 g/dL (32-36); Mean Corpuscular Volume 94.9 fL (80-100); Mean Platelet Volume 11.1 fL (7.4-10.4); Monocytes # (auto) 0.49 K/uL (0.11-0.59); Monocytes % (auto) 8.7 %; Neutrophils # (auto) 4.25 K/uL (1.4-6.5); Neutrophils % (auto) 75.6 %; Platelet Count 111 K/uL (130-400); RDW Coefficient of Variation 13.3 % (11.5-14.5); RDW Standard Deviation 46.4 fL (36.4-46.3); White Blood Count 5.62 K/uL (4.8-10.8)
[2020-03-12 07:01] LABS: INR 1.1 (0.9-1.1); Partial Thromboplastin Ratio 1.7; Prothrombin Time 11.2 Seconds (9.0-12.0)
[2020-03-12 07:06] LABS: Albumin Level 2.7 gm/dl (3.4-5.0); BUN Creatinine Ratio 16.8 (10-20); Calcium 8.3 mg/dl (8.5-10.1); Creatinine Clr Calc Pharmacy 85.3 ml/min; Est GFR (African American) 90.5; Est GFR (Non-African American) 78.1; Partial Thromboplastin Time 47.8 Seconds (21.0-31.0); Potassium 4.1 mmol/L (3.5-5.1)
[2020-03-12 07:09] LABS: Albumin Globulin Ratio 0.9 (0.9-2); Bilirubin,Total 0.4 mg/dl (0.2-1); Total Protein 5.7 gm/dl (6.4-8.2)
[2020-03-12] MEDS: guaiFENesin 600 MG TABCR PO SCH ×2 (08:29→21:11)
[2020-03-12] MEDS: INSULIN ASPART 100 UNITS/ML 3 ML PEN SC SCH ×4 (08:55→22:39)
--- NOTE | 2020-03-12 13:05 | XRay Report ---
XR chest 1V portable HISTORY: 74 years-old Male sob acute shortness of breath COMPARISON: CTA of the chest 03/11/2020, chest radiograph 03/10/2020 TECHNIQUE: Portable AP view of the chest FINDINGS: Cardiac silhouette is mildly enlarged. Prior median sternotomy. There is mildly improved aeration of the left lung base with minimal persistent left lung base opacities. Degenerative changes of the shou lders and spine. IMPRESSION: 1. Cardiomegaly without acute process. 2. Minimal left lung base opacities suggest atelectasis. ACT 112: Negative or not required by law. The above report was generated using voice recognition software. It may contain grammatical, syntax o r spelling errors. Electronically signed by: Rodrigo Becerril M.D. 03/12/2020 1:03 PM
[2020-03-12] MEDS: ACETAMINOPHEN 325 MG TAB PO PRN ×2 (13:32→17:40)
[2020-03-12] MEDS: REMDESIVIR 100mg: Days 2-5 IV SCH (14:31)
[2020-03-12] MEDS: NSS 30mL Flush, Days 1-5 IV SCH (15:52)
[2020-03-12] MEDS ORDERED: DEXAMETHASONE SOD PHOSPHATE 6 MG in SYRINGE 0 ML IV SCH (16:00)
[2020-03-12] MEDS: cefTRIAXone SODIUM 2,000 MG in DEXTROSE 5% 50 ML IV SCH (21:10)
--- NOTE | 2020-03-12 21:30 | Hospitalist Progress Note ---
Date of Service March 12, 2020 Assessment & Plan (1) Pneumonia due to 2019 novel coronavirus: Pneumonia due to COVID 19 virus infection- Admit to monitored bed, negative pressure. Received 10 mg of decadron on admission. This is stopped as patient is not requiring oxygen. Ceftriaxone 2 g IV daily. Azithromycin 500 mg IV daily Guaifenesin extended release 600 mg p.o. twice daily. Duonebs Every 2 hours as needed. Placed on remdesevir. First dose 03/11 (2) COVID-19 virus infection: See above Associated findings: thrombocytopenia---follow serially elevated D-dimer 1050--ordered CTA chest for PE protocol place on heparin drip, low dose, no bolus (3) Diabetes mellitus: Hold metformin. Place on Accu-Cheks before meals and at bedtime with NovoLog coverage per scale (4) Thrombocytopenia: platelets 103 upon admission, continue to follow closely while on heparin. (5) CAD (coronary artery disease): CAD/ status post CABG- follow serial troponins (6) Hx of CABG: see above Admission and Anticipated Discharge Date Admission Date: March 11, 2020 Subjective 74 yo male reports feeling worse today. He has more difficulty breathing. He has is also feeling warm today. Patient initially was concerned about receiving remdesevir, however after explaining side effects and risks as well as benefits. Patient is agreeable to continue with remdesevir today. Review of Systems Review of Systems: All systems reviewed & are unremarkable except as noted in HPI & below Physical Exam Physical Exam: The patient is awake, alert and oriented 3, well developed and well nourished, normocephalic and atraumatic, sitting upright in bed and in no acute distress. HEENT--PERRL, EOMI, mucous membranes and oropharynx normal Neck--supple. No JVD. No bruits. Thyroid normal, trachea midline, no adenopathy. Heart--normal S1 and S2. No murmurs, rubs or gallops. Lungs--bilateral coarse breath sounds. no respiratory distress, no accessory muscle use. Abdomen--normal bowel sounds and soft. Nontender. Nondistended. Extremities--no cyanosis or clubbing. No edema. Dermatologic--normal skin turgor, normal color, no abnormal lymph nodes, no rash. Neurologic--cranial nerves II through XII grossly intact. Rheumatologic--normal range of motion. Psychiatric--normal affect. Results & Data Results & Data ([facility]) Vital Signs (Past 12 Hours) Vital Signs Temp Pulse Pulse Resp BP BP Pulse Ox 03/12/20 18:26 37.8 C H 54 L 20 112/65 94 03/12/20 17:38 37.9 C H 55 L 18 120/63 93 03/12/20 16:00 58 L 03/12/20 15:54 37.5 C 56 L 18 115/55 L 92 03/12/20 14:32 38.5 C H 03/12/20 13:00 38.4 C H 62 22 133/67 95 03/12/20 11:36 36.6 C 68 22 145/73 H 96 PG Care Time/CCT Total # of Minutes Spent Total Time Spent with Patient: Total time spent is greater than 50% in coordination of care (as documented) at patient's floor/unit and/or counseling patient: Coding Level of Care Code 85151 Subseq Hosp Care Lvl 3 Diagnoses Pneumonia due to 2019 novel coronavirus U07.1; J12.89 COVID-19 virus infection U07.1 Diabetes mellitus E11.69 Diabetes mellitus complication status: with other specified complication Diabetes mellitus mcfp insulin use: without terminal superintendent use Diabetes mellitus type: type 2 Thrombocytopenia D69.6 CAD (coronary artery disease) I25.10 Associated angina: without angina Coronary Disease-Associated Artery/Lesion type: unspecified vessel or lesion type [place] vs. transplanted heart: [place] heart Hx of CABG Z95.1 Time Spent (min) 35 (1) Diabetes mellitus Diabetes mellitus complication status: with other specified complication Diabetes mellitus terminal superintendent insulin use: without terminal superintendent use Diabetes mellitus type: type 2 Qualified Code(s): E11.69 - Type 2 diabetes mellitus with other specified complication (2) CAD (coronary artery disease) Associated angina: without angina Coronary Disease-Associated Artery/Lesion type: unspecified vessel or lesion type [place] vs. transplanted heart: [place] heart Qualified Code(s): I25.10 - Atherosclerotic heart disease of [place] coronary artery without angina pectoris
[2020-03-12] MEDS: AZITHROMYCIN 500 MG in DEXTROSE 5% 250 ML IV SCH (21:58)
[2020-03-13] MEDS: HEPARIN SODIUM/DEXTROSE 25,000 UNITS/500 ML BAG IV SCH (01:14)
[2020-03-13] MEDS: ACETAMINOPHEN 325 MG TAB PO PRN (04:55)
[2020-03-13 07:39] LABS: Basophils # (auto) 0.01 K/uL (0-0.2); Basophils % (auto) 0.3 %; Hematocrit (blood only) 44.4 % (42-52); Hemoglobin 15.3 g/dL (14.0-18.0); Immature Granulocytes # (auto) 0.01 K/uL (0.00-0.02); Immature Granulocytes % (auto) 0.3 %; Lymphocytes % (auto) 27.7 %; Mean Corpuscular Hemoglobin 32.6 pg (25-34); Mean Corpuscular Hgb Conc 34.5 g/dL (32-36); Mean Corpuscular Volume 94.5 fL (80-100); Mean Platelet Volume 11.1 fL (7.4-10.4); Monocytes # (auto) 0.54 K/uL (0.11-0.59); Neutrophils # (auto) 2.05 K/uL (1.4-6.5); Neutrophils % (auto) 56.7 %; Platelet Count 100 K/uL (130-400); RDW Coefficient of Variation 13.4 % (11.5-14.5); RDW Standard Deviation 46.5 fL (36.4-46.3); White Blood Count 3.61 K/uL (4.8-10.8)
[2020-03-13 07:54] LABS: INR 1.1 (0.9-1.1); Partial Thromboplastin Ratio 2.4; Prothrombin Time 11.6 Seconds (9.0-12.0)
[2020-03-13 08:05] LABS: Albumin Level 2.7 gm/dl (3.4-5.0); BUN Creatinine Ratio 14.3 (10-20); Calcium 8.4 mg/dl (8.5-10.1); Creatinine Clr Calc Pharmacy 75.2 ml/min; Est GFR (African American) 77.6; Potassium 3.7 mmol/L (3.5-5.1)
[2020-03-13 08:07] LABS: Partial Thromboplastin Time 67.8 Seconds (21.0-31.0)
[2020-03-13 08:08] LABS: Albumin Globulin Ratio 0.9 (0.9-2); Bilirubin,Total 0.4 mg/dl (0.2-1); Globulin 3.1 gm/dl (2.5-4.0); Total Protein 5.8 gm/dl (6.4-8.2)
[2020-03-13] MEDS: guaiFENesin 600 MG TABCR PO SCH ×2 (08:45→21:14)
[2020-03-13 09:01] LABS: C Reactive Protein 2.7 mg/dl (0-0.29); Ferritin 128.2 ng/ml (8-388)
[2020-03-13] MEDS: INSULIN ASPART 100 UNITS/ML 3 ML PEN SC SCH ×4 (09:03→22:19)
[2020-03-13] MEDS: REMDESIVIR 100mg: Days 2-5 IV SCH (12:46)
[2020-03-13] MEDS: NSS 30mL Flush, Days 1-5 IV SCH (13:56)
[2020-03-13 16:38] LABS: Partial Thromboplastin Ratio 2.2
[2020-03-13 16:40] LABS: Partial Thromboplastin Time 60.5 Seconds (21.0-31.0)
[2020-03-13] MEDS: cefTRIAXone SODIUM 2,000 MG in DEXTROSE 5% 50 ML IV SCH (21:06)
[2020-03-13] MEDS: AZITHROMYCIN 500 MG in DEXTROSE 5% 250 ML IV SCH (22:01)
--- NOTE | 2020-03-13 22:22 | Hospitalist Progress Note ---
Date of Service March 13, 2020 Assessment & Plan (1) Pneumonia due to 2019 novel coronavirus: Pneumonia due to COVID 19 virus infection- Admit to monitored bed, negative pressure. Received 10 mg of decadron on admission. This is stopped as patient is not requiring oxygen. Ceftriaxone 2 g IV daily. Azithromycin 500 mg IV daily will continue for now, however this is likely mainly viral from covid given negative procal. Guaifenesin extended release 600 mg p.o. twice daily. Duonebs Every 2 hours as needed. Placed on remdesevir. third dose 03/13 will complete 5 day course given how patient was getting sicker initally while he was here. Anticipate dischare on Monday afternoon. (2) COVID-19 virus infection: See above Associated findings: thrombocytopenia---follow serially elevated D-dimer 1050--ordered CTA chest for PE protocol: which was negative. will maintain heparin drip, for another day, low dose, no bolus (3) Diabetes mellitus: Hold metformin. Place on Accu-Cheks before meals and at bedtime with NovoLog coverage per scale (4) Thrombocytopenia: platelets 103 upon admission, continue to follow closely while on heparin. (5) CAD (coronary artery disease): CAD/ status post CABG- follow serial troponins (6) Hx of CABG: see above Admission and Anticipated Discharge Date Admission Date: March 11, 2020 Subjective Patient is feeling better today. He felt improvement after receiving the second dose of remdesivir. Review of Systems Review of Systems: All systems reviewed & are unremarkable except as noted in HPI & below Physical Exam Physical Exam: The patient is awake, alert and oriented 3, well developed and well nourished, normocephalic and atraumatic, sitting upright in bed and in no acute distress. HEENT--PERRL, EOMI, mucous membranes and oropharynx normal Neck--supple. No JVD. No bruits. Thyroid normal, trachea midline, no adenopathy. Heart--normal S1 and S2. No murmurs, rubs or gallops. Lungs--bilateral coarse breath sounds. no respiratory distress, no accessory muscle use. Abdomen--normal bowel sounds and soft. Nontender. Nondistended. Extremities--no cyanosis or clubbing. No edema. Dermatologic--normal skin turgor, normal color, no abnormal lymph nodes, no rash. Neurologic--cranial nerves II through XII grossly intact. Rheumatologic--normal range of motion. Psychiatric--normal affect. Results & Data Results & Data ([facility]) Vital Signs (Past 12 Hours) Vital Signs Temp Pulse Pulse Resp BP Pulse Ox 03/13/20 21:16 36.5 C 52 L 18 111/57 L 95 03/13/20 17:21 36.7 C 51 L 18 144/66 H 95 03/13/20 17:00 56 L 03/13/20 12:41 37.3 C 48 L 16 119/59 L 94 PG Care Time/CCT Total # of Minutes Spent Total Time Spent with Patient: Total time spent is greater than 50% in c oordination of care (as documented) at patient's floor/unit and/or counseling patient: Coding Level of Care Code 39962 Subseq Hosp Care Lvl 3 Diagnoses Pneumonia due to 2019 novel coronavirus U07.1; J12.89 COVID-19 virus infection U07.1 Diabetes mellitus E11.69 Diabetes mellitus complication status: with other specified complication Diabetes mellitus detention insulin use: without detention use Diabetes mellitus type: type 2 Thrombocytopenia D69.6 CAD (coronary artery disease) I25.10 Associated angina: without angina Coronary Disease-Associated Artery/Lesion type: unspecified vessel or lesion type [place] vs. transplanted heart: [place] heart Hx of CABG Z95.1 Time Spent (min) 35 (1) Diabetes mellitus Diabetes mellitus complication status: with other specified complication Diabetes mellitus tank terminal gauger insulin use: without tank terminal gauger use Diabetes mellitus type: type 2 Qualified Code(s): E11.69 - Type 2 diabetes mellitus with other specified complication (2) CAD (coronary artery disease) Associated angina: without angina Coronary Disease-Associated Artery/Lesion type: unspecified vessel or lesion type [place] vs. transplanted heart: [place] heart Qualified Code(s): I25.10 - Atherosclerotic heart disease of [place] coronary artery without angina pectoris
--- NOTE | 2020-03-14 00:26 | Communication Note ---
Date of Service: March 14, 2020 Notified that pt had rash on back, raised bumps on back that "itch and burn". Ordered Benadryl, consider shingles. Resident Activity Tracking Resident Involvement: Physician General Internal Medicine Coverage Note Care Provided: Adult Hospital Medicine
[2020-03-14] MEDS: HEPARIN SODIUM/DEXTROSE 25,000 UNITS/500 ML BAG IV SCH (01:21)
--- NOTE | 2020-03-14 05:04 | Communication Note ---
Date of Service: March 14, 2020 Notified about 4:30Am that pt had a fall in the bathroom while emptying his leg bag. Pt did hit his head, and per nursing had a "baseball sized lump on the back" with 10/10 pain in the head and right arm pain. Heparin was stopped and head CT with right arm imaging was ordered. Head CT showed no acute intracranial bleed but he does have a scalp hematoma. R arm XRs also look unremarkable. 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
--- NOTE | 2020-03-14 07:30 | CT Scan Report ---
CT head/brain wo con CLINICAL HISTORY: Head pain status post trauma COMPARISON STUDY: No previous studies for comparison. TECHNIQUE: Axial CT of the brain is performed from the vertex to the skull base. IV contrast was not administered for this examination. A dose lowering technique was utilized adhering to the principles of ALARA. CT DOSE: 614.27 mGy.cm FINDINGS: No intra or extra-axial mass lesions are visualized. There is no CT evidence of acute cortical infarc tion. There is no evidence of midline shift. There is no acute hemorrhage. No calvarial fractures ar e visualized. There are patchy white matter hypodensities likely on a small vessel basis. There is no evidence of pathologic ventricular dilatation. There is left posterior scalp swelling. There is no evidence of acute sinusitis. IMPRESSION: Posterior scalp edema. No acute intracranial findings. ACT 112: Negative or not required by law. Electronically signed by: Bakari Alcala M.D. 03/14/2020 7:29 AM
[2020-03-14 07:40] LABS: Partial Thromboplastin Ratio 1.2; Partial Thromboplastin Time 32.8 Seconds (21.0-31.0)
[2020-03-14 07:46] LABS: Creatinine Clr Calc Pharmacy 86.2 ml/min; Est GFR (African American) 91.7; Est GFR (Non-African American) 79.1; Magnesium 2.1 mg/dl (1.8-2.4)
[2020-03-14] MEDS: ACETAMINOPHEN 325 MG TAB PO PRN ×3 (08:05→22:45)
[2020-03-14] MEDS: guaiFENesin 600 MG TABCR PO SCH (08:06)
--- NOTE | 2020-03-14 08:21 | XRay Report ---
XR forearm RT 2V CLINICAL HISTORY: Right forearm pain status post trauma COMPARISON: None. DISCUSSION: No fractures or dislocations are visualized. IMPRESSION: No fractures or dislocations identified. ACT 112: Negative or not required by law. Electronically signed by: Bakari Alcala M.D. 03/14/2020 8:20 AM
--- NOTE | 2020-03-14 08:21 | XRay Report ---
XR humerus RT 2V CLINICAL HISTORY: Pain status post trauma COMPARISON: None. DISCUSSION: No fractures or dislocations are visualized. THERE IS NO EVIDENCE FOR SOFT TISSUE SWELLIN G. IMPRESSION: No fractures or dislocations identified. ACT 112: Negative or not required by law. Electronically signed by: Bakari Alcala M.D. 03/14/2020 8:20 AM
[2020-03-14] MEDS: INSULIN ASPART 100 UNITS/ML 3 ML PEN SC SCH ×5 (09:05→21:50)
[2020-03-14] MEDS: REMDESIVIR 100mg: Days 2-5 IV SCH (12:43)
--- NOTE | 2020-03-14 13:28 | Hospitalist Progress Note ---
Date of Service March 14, 2020 Assessment & Plan (1) Pneumonia due to 2019 novel coronavirus: Pneumonia due to COVID 19 virus infection. - Continue remdesivir x 1 more dose tomorrow - Stop antibiotics today. Two negative procalcitonins, and CXR on 03/12 already showed resolution of his Covid pneumonia. (2) COVID-19 virus infection: See above. (3) Diabetes mellitus: Hold metformin. - Sliding scale insulin - Blood sugars all under control today. (4) Thrombocytopenia: Platelets 103 upon admission. - Continue to follow closely (5) CAD (coronary artery disease): CAD status post CABG. Troponins negative x 3 here. - Monitor; can discuss with his PCP regarding ASA and statin. He states he is generally anti-medicine. (6) DVT prophylaxis: Lovenox & SCDs - Encouraged frequent movement/leg exercises. Admission and Anticipated Discharge Date Admission Date: March 11, 2020 Subjective Breathing is good today, but he has a lot of pain in the shoulders and back from his fall last night. Reports no fevers/chills, chest pain, shortness of breath, abdominal pain, nausea, or vomiting. Physical Exam Constitutional: WD/WN, vitals as above Eyes: EOM intact bilaterally; no conjunctival abnormality ENMT: external ear and nose normal, oropharynx normal Neck: trachea midline, no thyromegaly normal visual inspection Respiratory: normal respiratory effort, lungs clear to auscultation no respiratory distress Cardiovascular: RRR, no murmur, no edema Gastrointestinal (Abdomen): Inspection/Auscultation: abdomen normal to inspection; abdomen not distended Musculoskeletal: no cyanosis or clubbing, extremities motor strength 5/5 Head/Neck/Chest: + head abnormal to inspection (Swelling on back of head) Skin: no rashes, warm and dry Neurologic: moves all extremities and awake Psychiatric: Orientation: alert, oriented to person and cooperative Results & Data Results & Data ([facility]) Vital Signs (Past 12 Hours) Vital Signs Temp Pulse Resp BP BP Pulse Ox 03/14/20 11:48 36.4 C L 47 L 16 153/79 H 96 03/14/20 07:55 36.7 C 53 L 16 148/76 H 93 03/14/20 05:00 20 146/76 H 92 03/14/20 04:22 36.6 C 44 L 18 158/72 H 93 PG Care Time/CCT Total # of Minutes Spent Total Time Spent with Patient: Total time spent is greater than 50% in coordination of care (as documented) at patient's floor/unit and/or counseling patient: Coding Level of Care Code 11108 Subseq Hosp Care Lvl 2 Diagnoses Pneumonia due to 2019 novel coronavirus U07.1; J12.89 COVID-19 virus infection U07.1 Diabetes mellitus E11.69 Diabetes mellitus complication status: with other specified complication Diabetes mellitus [facility] insulin use: without termite exterminator helper use Diabetes mellitus type: type 2 Thrombocytopenia D69.6 CAD (coronary artery disease) I25.10 Associated angina: without angina Coronary Disease-Associated Artery/Lesion type: unspecified vessel or lesion type [place] vs. transplanted heart: [place] heart DVT prophylaxis Z29.9 (1) Diabetes mellitus Diabetes mellitus complication status: with other specified complication Diabetes mellitus [facility] insulin use: without termite exterminator helper use Diabetes mellitus type: type 2 Qualified Code(s): E11.69 - Type 2 diabetes mellitus with other specified complication (2) CAD (coronary artery disease) Associated angina: without angina Coronary Disease-Associated Artery/Lesion type: unspecified vessel or lesion type [place] vs. transplanted heart: [place] heart Qualified Code(s): I25.10 - Atherosclerotic heart disease of [place] coronary artery without angina pectoris
[2020-03-14] MEDS: NSS 30mL Flush, Days 1-5 IV SCH (13:54)
[2020-03-15 07:18] LABS: Hematocrit (blood only) 46.4 % (42-52); Hemoglobin 15.9 g/dL (14.0-18.0); Mean Corpuscular Hemoglobin 32.1 pg (25-34); Mean Corpuscular Hgb Conc 34.3 g/dL (32-36); Mean Corpuscular Volume 93.5 fL (80-100); Mean Platelet Volume 10.8 fL (7.4-10.4); Platelet Count 126 K/uL (130-400); RDW Coefficient of Variation 13.3 % (11.5-14.5); RDW Standard Deviation 45.4 fL (36.4-46.3); Red Blood Count 4.96 M/uL (4.7-6.1)
[2020-03-15 07:58] LABS: Albumin Level 2.6 gm/dl (3.4-5.0); BUN Creatinine Ratio 17.2 (10-20); Creatinine Clr Calc Pharmacy 94.2 ml/min; Est GFR (African American) 99.2; Est GFR (Non-African American) 85.6; Magnesium 2.1 mg/dl (1.8-2.4); Potassium 3.9 mmol/L (3.5-5.1)
[2020-03-15 08:01] LABS: Albumin Globulin Ratio 0.8 (0.9-2); Bilirubin,Total 0.7 mg/dl (0.2-1); Globulin 3.3 gm/dl (2.5-4.0); Total Protein 5.9 gm/dl (6.4-8.2)
[2020-03-15] MEDS: ENOXAPARIN INJ 40 MG/0.4 ML SYR SQ SCH (08:58)
[2020-03-15] MEDS: INSULIN ASPART 100 UNITS/ML 3 ML PEN SC SCH ×4 (08:59→22:19)
[2020-03-15] MEDS: LIDOCAINE 5% 1 PATCH TD SCH (08:59)
[2020-03-15] MEDS: ACETAMINOPHEN 325 MG TAB PO PRN ×2 (08:59→21:34)
[2020-03-15] MEDS: REMDESIVIR 100mg: Days 2-5 IV SCH (12:54)
[2020-03-15] MEDS: NSS 30mL Flush, Days 1-5 IV SCH (14:07)
--- NOTE | 2020-03-15 15:00 | Hospitalist Progress Note ---
Date of Service March 15, 2020 Assessment & Plan (1) Orthostatic dizziness: First noted on 03/14. Overnight of 03/13-03/14, he had a fall while going to the bathroom and bending over. Feels he blacked out for several minutes. At this point, he feels dizzy, lightheadedness, and flushing. BP remains stable; however, the patient reports worsening symptoms over several minutes and has to lie down. - Will monitor after remdesivir done; if no improvement, will trial compression stockings. - Monitor orthostatics - PT/OT (2) Pneumonia due to 2019 novel coronavirus: Pneumonia due to COVID 19 virus infection. - Continue remdesivir x 1 more dose today - Stopped antibiotics on 03/14. Two negative procalcitonins, and CXR on 03/12 already showed resolution of his Covid pneumonia. (3) COVID-19 virus infection: See above. (4) Diabetes mellitus: Hold metformin. - Sliding scale insulin - Blood sugars all good today. (5) Thrombocytopenia: Platelets 103 upon admission. - Continue to follow closely - Now 126 (6) CAD (coronary artery disease): CAD status post CABG. Troponins negative x 3 here. - Monitor; can discuss with his PCP regarding ASA and statin. He states he is generally anti-medicine. (7) DVT prophylaxis: Lovenox & SCDs - Encouraged frequent movement/leg exercises. Admission and Anticipated Discharge Date Admission Date: March 11, 2020 Subjective No breathing issues, but having substantial orthostasis. Reports no fevers/chills, chest pain, shortness of breath, abdominal pain, nausea, or vomiting. Physical Exam Constitutional: WD/WN, vitals as above Eyes: EOM intact bilaterally; no conjunctival abnormality ENMT: external ear and nose normal, oropharynx normal Neck: trachea midline, no thyromegaly normal visual inspection Respiratory: normal respiratory effort, lungs clear to auscultation no respiratory distress Cardiovascular: RRR, no murmur, no edema Gastrointestinal (Abdomen): Inspection/Auscultation: abdomen normal to inspection; abdomen not distended Musculoskeletal: no cyanosis or clubbing, extremities motor strength 5/5 Head/Neck/Chest: + head abnormal to inspection (Swelling on back of head) Skin: no rashes, warm and dry Neurologic: moves all extremities and awake Psychiatric: Orientation: alert, oriented to person and cooperative Results & Data Results & Data ([facility]) Vital Signs (Past 12 Hours) Vital Signs Temp Pulse Pulse Resp BP BP Pulse Ox 03/15/20 12:52 36.5 C 52 L 16 162/81 H 94 03/15/20 08:54 36.7 C 52 L 16 134/70 96 03/15/20 07:27 49 L 03/15/20 03:16 36.5 C 53 L 20 130/71 93 PG Care Time/CCT Total # of Minutes Spent Total Time Spent with Patient: Total time spent is greater than 50% in coordination of care (as documented) at patient's floor/unit and/or counseling patient: Coding Level of Care Code 42275 Subseq Hosp Care Lvl 3 Diagnoses Orthostatic dizziness R42 Pneumonia due to 2019 novel coronavirus U07.1; J12.89 COVID-19 virus infection U07.1 Diabetes mellitus E11.69 Diabetes mellitus complication status: with other specified complication Diabetes mellitus intermediate teacher insulin use: without intermediate teacher use Diabetes mellitus type: type 2 Thrombocytopenia D69.6 CAD (coronary artery disease) I25.10 Associated angina: without angina Coronary Disease-Associated Artery/Lesion type: unspecified vessel or lesion type [place] vs. transplanted heart: [place] heart DVT prophylaxis Z29.9 (1) Diabetes mellitus Diabetes mellitus complication status: with other specified complication Diabetes mellitus detention insulin use: without intermediate teacher use Diabetes mellitus type: type 2 Qualified Code(s): E11.69 - Type 2 diabetes mellitus with other specified complication (2) CAD (coronary artery disease) Associated angina: without angina Coronary Disease-Associated Artery/Lesion type: unspecified vessel or lesion type [place] vs. transplanted heart: [place] heart Qualified Code(s): I25.10 - Atherosclerotic heart disease of [place] coronary artery without angina pectoris
--- NOTE | 2020-03-15 23:43 | Electrocardiogram Report ---
Test Reason : Blood Pressure : / mmHG Vent. Rate : 044 BPM Atrial Rate : 044 BPM P-R Int : 210 ms QRS Dur : 100 ms QT Int : 482 ms P-R-T Axes : 051 -10 -63 degrees QTc Int : 412 ms Marked sinus bradycardia with 1st degree A-V block Blocked Premature atrial complexes Cannot rule out Inferior infarct (cited on or before 10-MAR-2020) T wave abnormality, consider inferolateral ischemia Abnormal ECG When compared with ECG of 10-MAR-2020 22:18, T wave inversion more evident in Inferolateral leads Blocked Premature atrial complexes are now Present Confirmed by Meño Coleman ([id number]) on 03/15/2020 11:43:13 PM Referred By: REFERRED SELF Confirmed By:Meño Coleman
[2020-03-16 08:01] LABS: Creatinine Clr Calc Pharmacy 73.8 ml/min; Est GFR (African American) 75.9; Est GFR (Non-African American) 65.5
[2020-03-16] MEDS: ENOXAPARIN INJ 40 MG/0.4 ML SYR SQ SCH (09:36)
[2020-03-16] MEDS: LIDOCAINE 5% 1 PATCH TD SCH (09:37)
[2020-03-16] MEDS: INSULIN ASPART 100 UNITS/ML 3 ML PEN SC SCH ×4 (10:39→20:13)
--- NOTE | 2020-03-16 14:01 | Hospitalist Progress Note ---
Date of Service March 16, 2020 Assessment & Plan (1) Orthostatic dizziness: First noted on 03/14. Overnight of 03/13-03/14, he had a fall while going to the bathroom and bending over. Feels he blacked out for several minutes. At this point, he feels dizzy, lightheadedness, and flushing. BP remains stable; however, the patient reports worsening symptoms over several minutes and has to lie down. - Will monitor after remdesivir done; if no improvement, will trial compression stockings. - Monitor orthostatics - PT/OT -> Please continue to see him. - Still difficult today. Did well initially, but then got super wiped out and was exhausted. (2) Pneumonia due to 2019 novel coronavirus: Pneumonia due to COVID 19 virus infection. - Finished remdesivir on 03/15 - Stopped antibiotics on 03/14. Two negative procalcitonins, and CXR on 03/12 already showed resolution of his Covid pneumonia. (3) COVID-19 virus infection: See above. (4) Diabetes mellitus: Hold metformin. - Sliding scale insulin - Blood sugars all good today. - Will get A1c tomorrow. (5) Thrombocytopenia: Platelets 103 upon admission. - Continue to follow closely - Now 126. Monitor. (6) CAD (coronary artery disease): CAD status post CABG. Troponins negative x 3 here. - Monitor; can discuss with his PCP regarding ASA and statin. He states he is generally anti-medicine. - Echo as above (7) DVT prophylaxis: Lovenox & SCDs - Encouraged frequent movement/leg exercises. Admission and Anticipated Discharge Date Admission Date: March 11, 2020 Subjective Doing better this morning. Overall, had a good morning, then had trouble getting back into bed. Reports no fevers/chills, chest pain, shortness of breath, abdominal pain, nausea, or vomiting. Physical Exam Constitutional: WD/WN, vitals as above Eyes: EOM intact bilaterally; no conjunctival abnormality ENMT: external ear and nose normal, oropharynx normal Neck: trachea midline, no thyromegaly normal visual inspection Respiratory: normal respiratory effort, lungs clear to auscultation no respiratory distress Cardiovascular: RRR, no murmur, no edema Gastrointestinal (Abdomen): Inspection/Auscultation: abdomen normal to inspection; abdomen not distended Musculoskeletal: no cyanosis or clubbing, extremities motor strength 5/5 Head/Neck/Chest: + head abnormal to inspection (Swelling on back of head) Skin: no rashes, warm and dry Neurologic: moves all extremities and awake Psychiatric: Orientation: alert, oriented to person and cooperative Results & Data Results & Data ([facility]) Vital Signs (Past 12 Hours) Vital Signs Temp Pulse Pulse Resp BP BP Pulse Ox 03/16/20 12:45 36.5 C 51 L 16 169/80 H 94 03/16/20 09:32 36.5 C 55 L 16 151/82 H 92 03/16/20 07:22 50 L 03/16/20 03:37 36.6 C 56 L 18 122/77 93 PG Care Time/CCT Total # of Minutes Spent Total Time Spent with Patient: Total time spent is greater than 50% in coordination of care (as documented) at patient's floor/unit and/or counseling patient: Coding Level of Care Code 08264 Subseq Hosp Care Lvl 2 Diagnoses Orthostatic dizziness R42 Pneumonia due to 2019 novel coronavirus U07.1; J12.89 COVID-19 virus infection U07.1 Diabetes mellitus E11.69 Diabetes mellitus complication status: with other specified complication Diabetes mellitus intermodal dispatcher insulin use: without intermodal dispatcher use Diabetes mellitus type: type 2 Thrombocytopenia D69.6 CAD (coronary artery disease) I25.10 Associated angina: without angina Coronary Disease-Associated Artery/Lesion type: unspecified vessel or lesion type [place] vs. transplanted heart: [place] heart DVT prophylaxis Z29.9 (1) Diabetes mellitus Diabetes mellitus complication status: with other specified complication Diabetes mellitus alf insulin use: without intermodal dispatcher use Diabetes mellitus type: type 2 Qualified Code(s): E11.69 - Type 2 diabetes mellitus with other specified complication (2) CAD (coronary artery disease) Associated angina: without angina Coronary Disease-Associated Artery/Lesion type: unspecified vessel or lesion type [place] vs. transplanted heart: [place] heart Qualified Code(s): I25.10 - Atherosclerotic heart disease of [place] coronary artery without angina pectoris
--- NOTE | 2020-03-16 14:45 | XCELERA ---
[id number] \\[id number]
[2020-03-17] MEDS: ACETAMINOPHEN 325 MG TAB PO PRN (04:20)
[2020-03-17 07:04] LABS: Hematocrit (blood only) 47.1 % (42-52); Hemoglobin 16.5 g/dL (14.0-18.0); Mean Corpuscular Hemoglobin 32.4 pg (25-34); Mean Corpuscular Volume 92.5 fL (80-100); Mean Platelet Volume 10.4 fL (7.4-10.4); Platelet Count 177 K/uL (130-400); RDW Coefficient of Variation 13.1 % (11.5-14.5); RDW Standard Deviation 44.8 fL (36.4-46.3); Red Blood Count 5.09 M/uL (4.7-6.1); White Blood Count 6.15 K/uL (4.8-10.8)
[2020-03-17 07:31] LABS: BUN Creatinine Ratio 17.3 (10-20); Creatinine Clr Calc Pharmacy 84.5 ml/min; Est GFR (African American) 89.4; Est GFR (Non-African American) 77.1; Magnesium 1.9 mg/dl (1.8-2.4)
[2020-03-17] MEDS: LIDOCAINE 5% 1 PATCH TD SCH (08:13)
[2020-03-17] MEDS: INSULIN ASPART 100 UNITS/ML 3 ML PEN SC SCH ×4 (08:29→21:26)
[2020-03-17 10:00] LABS: Estimated Average Glucose 163 mg/dl; Hemoglobin A1C 7.3 % (4.5-5.6)
--- NOTE | 2020-03-17 10:04 | Cardiology Consultation ---
Date of Consultation March 17, 2020 Assessment & Plan (1) Orthostatic hypotension: Mr. Holland is a 74 year old male with a history of CAD s/p CABG 2011, Type 2 Diabetes Mellitus, Dyslipidemia, Chronic Sinus Bradycardia, s/p Prostatectomy with chronic indwelling Shannon catheter, and Thrombocytopenia who was admitted to [facility] on 03/11/2020 with COVID 19 Pneumonia. He received Decadron followed by a 5 day course of Remdesivir. His respiratory symptoms and CXR cleared relatively quickly. His appetite is gradually improving as well. Patient was to be discharged 03/15/2020, but overnight 03/13 to 03/14 patient went into the bathroom and the longer he stood there -- he developed lightheadedness, generalized weakness, and a warm feeling all over, and thinks he had a syncopal episode complicated by a scalp hematoma. He continues to have these same symptoms (without syncope) when he is upright for a period --- mostly while standing upright, and to a lesser degree while sitting up for too long. His resting HR is usually in the upper 40's to low 60's. He is not on any negative chrono tropic medications. I met with, interviewed, and examined the patient and was present and helped obtain orthostatic vital along with Valerie AGUILAR. His SBP dropped from 162 mmHg sitting down to 119 mmHg standing (he was feeling lightheaded and warm all over) -- but his HR went from 52 bpm seated up to 92 bpm while standing. Repeat standing VS approximately 30 - 60 seconds later showed a SBP of 129 mmHg and HR was 100 bpm. This is consistent with orthostatic hypotension. Additionally these VS are consistent with his chronotropic competence being intact. Recommend the following: -- IV NSS with 20 mEq KCl at 150 cc/hr x 1.5 liters. -- Repeat orthostatic VS after receiving IV fluids. -- Increase oral fluid intake. -- Progress diet / caloric intake as his appetite is gradually improving fol lowing COVID 19 infection. -- Some of his symptoms may be present as a result of his coronavirus infection. (2) Orthostatic dizziness: -- As outlined above. (3) CAD (coronary artery disease): CAD s/p CABG in 2011, asymptomatic. -- Recommend Aspirin 81 mg daily. -- Recommend starting intermediate frame tender statin. -- Beta jody is not indicated due to chronic bradycardia. (4) Hx of CABG: -- See above. (5) COVID-19 virus infection: -- As per hospitalist service. Present on Admission?: Yes History of Present Illness Reason for Consultation: -- Orthostatic Lightheadedness. -- Bradycardia. -- CAD s/p CABG 2011. Requesting Physician: Quinton Llanes MD Attending Physician: Raghavendra Moreno MD History of Present Illness Mr. Holland is a 74 year old male with a history of CAD s/p CABG 2011, Type 2 Diabetes Mellitus, Dyslipidemia, Chronic Sinus Bradycardia, s/p Prostatectomy with chronic indwelling Shannon catheter, and Thrombocytopenia who was admitted to [facility] on 03/11/2020 with COVID 19 Pneumonia. He received Decadron followed by a 5 day course of Remdesivir. His respiratory symptoms and CXR cleared relatively quickly. His appetite is gradually improving as well. Patient was to be discharged 03/15/2020, but overnight 03/13 to 03/14 patient went into the bathroom and the longer he stood there -- he developed lightheadedness, generalized weakness, and a warm feeling all over, and thinks he had a syncopal episode complicated by a scalp hematoma. He continues to have these same symptoms (without syncope) when he is upright for a period --- mostly while standing upright, and to a lesser degree while sitting up for too long. Admittedly, patient does have a chronic bradycardia -- his resting HR is usually in the upper 40's to low 60's. He is not on any negative chronotropic medications. Allergies Allergy/AdvReac Type Severity Reaction Status Date / Time Sulfa (Sulfonamide Allergy Hives Verified 03/10/20 23:11 Antibiotics) Home Medications Home Medications Medication Instructions Recorded Confirmed Type metformin 500 mg PO DAILY 03/10/20 03/10/20 History Patient History Medical History (Updated 03/17/20 @ 10:56 by Chepe Amado PA-C) CAD (coronary artery disease) Diabetes mellitus Urinary incontinence Surgical History (Updated 03/11/20 @ 01:46 by Alexis Blount MD) Hx of CABG Social History Smoking Status: Former smoker Second Hand Exposure: No; Hx Alcohol Use: Yes Alcohol type: beer Hx Substance Use: No Preferred Language: Telugu Communication Ability: Effective 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 HEENT: Palpable hematoma with ecchymosis of the posterior scalp. EOM's intact. Facies symmetric. No perioral cyanosis. NECK: No JVD. JVP is at the level of the clavicle sitting upright. Carotid upstrokes are + 2 bilaterally. No bruits are noted. CHEST/LUNGS: Clear to auscultation throughout all lung gill. No wheezes, rales, or crackles. CVS: S1 and S2 are regular and bradycardic at 52 bpm with a grade 1-2/6 apical holosystolic murmur. No diastolic murmurs. No gallops or rubs. PMI is nondisplaced. No lifts, heaves, or thrills. No abdominal aortic or renal bruits. Median sternotomy incision is closed, well-healed. ABDOMINAL EXAM: Bowel sounds are present. No masses, organomegaly, or tenderness. EXTREMITIES: No clubbing or cyanosis. No edema. Intact radial pulses bilaterally. NEUROLOGIC EXAM: Patient is awake, alert, and oriented. Pleasant and cooperative. Answers questions appropriately. Speech is clear. Normal movement in all 4 extremities. Gait pattern is unremarkable. Orthostatic VS: Lying BP 134/70 with HR 60 bpm. Sitting BP 162/72 with HR 52 bpm. Standing BP 119/81 with HR 92 bpm. Repeat standing BP 129/78 with HR 100 bpm. ECHOCARDIOGRAM 03/16/2020: -- Normal LV size, wall motion, and systolic function. -- LVEF 55% to 60%. -- Mild to moderate MR. -- Mild TR. TELEMETRY: -- Reviewed in full. -- Sinus bradycardia with PAC's and occasional blocked PAC's. -- Two brief episodes on non-sustained (lasting 4 and 8 beats respectively). Results & Data ([facility]) Vital Signs (Past 12 Hours) Vital Signs Temp Pulse Pulse Resp BP BP Pulse Ox 03/17/20 09:55 70 20 119/81 89 L 03/17/20 09:30 56 L 20 163/72 H 94 03/17/20 09:29 60 20 134/70 92 03/17/20 08:14 36.7 C 52 L 20 131/74 92 03/17/20 07:25 51 L 03/17/20 04:19 36.6 C 54 L 18 112/67 91 03/17/20 01:14 63 03/16/20 23:35 36.8 C 57 L 18 133/73 92 Laboratory Results Laboratory Results - last 24 hr 03/16/20 03/16/20 03/16/20 12:47 17:36 19:50 WBC RBC Hgb Hct MCV MCH MCHC RDW Std Deviation RDW Coeff of Mona Plt Count MPV Sodium Potassium Chloride Carbon Dioxide Anion Gap BUN Creatinine Est Cr Clr Drug Dosing Est GFR ( Amer) Est GFR (Non-Af Amer) BUN/Creatinine Ratio Glucose POC Glucose 117 H 156 H 156 H Estimat Average Glucose Hemoglobin A1c Calcium Magnesium 03/17/20 03/17/20 03/17/20 06:36 06:36 06:36 WBC 6.15 RBC 5.09 Hgb 16.5 Hct 47.1 MCV 92.5 MCH 32.4 MCHC 35.0 RDW Std Deviation 44.8 RDW Coeff of Mona 13.1 Plt Count 177 MPV 10.4 Sodium 138 Potassium 4.0 Chloride 107 Carbon Dioxide 24 Anion Gap 7.0 BUN 17 Creatinine 0.97 Est Cr Clr Drug Dosing 84.5 Est GFR ( Amer) 89.4 Est GFR (Non-Af Amer) 77.1 BUN/Creatinine Ratio 17.3 Glucose 137 H POC Glucose Estimat Average Glucose 163 Hemoglobin A1c 7.3 H Calcium 8.0 L Magnesium 1.9 03/17/20 07:56 WBC RBC Hgb Hct MCV MCH MCHC RDW Std Deviation RDW Coeff of Mona Plt Count MPV Sodium Potassium Chloride Carbon Dioxide Anion Gap BUN Creatinine Est Cr Clr Drug Dosing Est GFR ( Amer) Est GFR (Non-Af Amer) BUN/Creatinine Ratio Glucose POC Glucose 129 H Estimat Average Glucose Hemoglobin A1c Calcium Magnesium Medications Administered Active Medications Generic Name Dose Route Start Last Admin Trade Name Freq PRN Reason Stop Dose Admin Acetaminophen 650 mg 03/12/20 13:19 03/17/20 04:20 Acetaminophen 325 Mg Tab PO 03/22/20 13:18 650 mg Q6H PRN Administration Fever Dextrose 25 - 50 ml 03/11/20 20:49 Dextrose 50% 50 Ml Syringe IV 04/10/20 20:48 UD PRN Hypoglycemia Protocol Protocol Diphenhydramine HCl 25 mg 03/15/20 21:25 03/15/20 21:42 Diphenhydramine Hcl 25 Mg Cap PO 04/14/20 21:24 25 mg Q6H PRN Administration itching Enoxaparin Sodium 40 mg 03/15/20 09:00 03/16/20 09:36 Enoxaparin Inj 40 Mg/0.4 Ml Syr SQ 04/14/20 08:59 40 mg QAM VERONIKA Administration Glucagon 1 mg 03/11/20 20:49 Glucagon For Inj 1 Mg Vial SQ 04/10/20 20:48 UD PRN Hypoglycemia Protocol Protocol Glucose 4 - 8 tabs 03/11/20 21:00 Glucose 10 Tabs/Tube PO 04/10/20 20:59 UD PRN Hypoglycemia Protocol Protocol Glucose 15 - 30 gm 03/11/20 21:00 Glucose 40% Gel 15 Gm Tube PO 04/10/20 20:59 UD PRN Hypoglycemia Protocol Protocol Potassium Chloride/Sodium Chloride 20 meq in 1,000 mls @ 150 mls/hr 03/17/20 10:00 Normal Saline W/20 Meq Kcl IV 04/16/20 09:59 .[id number] [facility] Insulin Aspart 0 units 03/11/20 21:00 03/17/20 08:29 Insulin Aspart 100 Units/Ml 3 Ml Pen SC 04/10/20 20:59 Not Given ACHS [facility] Lidocaine 1 patch 03/15/20 09:00 03/17/20 08:13 Lidocaine 5% 1 Patch TD 04/14/20 08:59 Not Given QAM [facility] Miscellaneous 15 - 30 gm 03/11/20 20:49 Carbohydrates For Hypoglycemia PO 04/10/20 20:48 UD PRN Hypoglycemia Protocol Miscellaneous 1 ea 03/15/20 21:00 03/16/20 20:14 Remove Lidoderm Patch N/A 04/14/20 20:59 Not Given DAILY@2100 [facility] PG Care Time/CCT Total # of Minutes Spent Total Time Spent with Patient: Total time spent is greater than 50% in coordination of care (as documented) at patient's floor/unit and/or counseling patient: 45 minutes Coding Level of Care Code 17898 Initial Inpt Care Lvl 3 Diagnoses Orthostatic hypotension I95.1 Orthostatic dizziness R42 CAD (coronary artery disease) I25.10 Associated angina: without angina Coronary Disease-Associated Artery/Lesion type: unspecified vessel or lesion type [place] vs. transplanted heart: [place] heart Hx of CABG Z95.1 COVID-19 virus infection U07.1 (1) CAD (coronary artery disease) Associated angina: without angina Coronary Disease-Associated Artery/Lesion type: unspecified vessel or lesion type [place] vs. transplanted heart: [place] heart Qualified Code(s): I25.10 - Atherosclerotic heart disease of [place] coronary artery without angina pectoris
[2020-03-17] MEDS: NSS + 20MEQ KCL 20 MEQ/1,000 ML BAG IV SCH ×3 (11:41→23:36)
[2020-03-17] MEDS: ENOXAPARIN INJ 40 MG/0.4 ML SYR SQ SCH (11:41)
--- NOTE | 2020-03-17 16:43 | Hospitalist Progress Note ---
Date of Service March 17, 2020 Assessment & Plan (1) Orthostatic dizziness: First noted on 03/14. Overnight of 03/13-03/14, he had a fall while going to the bathroom and bending over. Feels he blacked out for several minutes. At that point, he felt dizzy, lightheadedness, and flushing. BP remains stable; however, the patient reports worsening symptoms over several minutes and has to lie down. - Will monitor after remdesivir done; if no improvement, will trial compression stockings. - Monitor orthostatics - PT/OT -> Please continue to see him. - Still there today, but improved. Able to be up some. Seen by cardiology who feel this is dehydration and possibly post-viral orthostatic hypotension. (2) Pneumonia due to 2019 novel coronavirus: Pneumonia due to COVID 19 virus infection. - Finished remdesivir on 03/15 - Stopped antibiotics on 03/14. Two negative procalcitonins, and CXR on 03/12 already showed resolution of his Covid pneumonia. (3) COVID-19 virus infection: See above. (4) Diabetes mellitus: A1c was 7.3% this admission. - Hold metformin. - Sliding scale insulin - Blood sugars all acceptable today. (5) Thrombocytopenia: Platelets 103 upon admission. - Continue to follow closely - Now 177. Recovering. (6) CAD (coronary artery disease): CAD status post CABG. Troponins negative x 3 here. - Monitor; can discuss with his PCP regarding ASA and statin. He states he is generally anti-medicine. - Echo showed EF 50-55%. (7) DVT prophylaxis: Lovenox & SCDs - Encouraged frequent movement/leg exercises. Admission and Anticipated Discharge Date Admission Date: March 11, 2020 Subjective Feeling tired, but maybe better than yesterday. Reports no fevers/chills, chest pain, shortness of breath, abdominal pain, nausea, or vomiting. Physical Exam Constitutional: WD/WN, vitals as above Eyes: EOM intact bilaterally; no conjunctival abnormality ENMT: external ear and nose normal, oropharynx normal Neck: trachea midline, no thyromegaly normal visual inspection Respiratory: normal respiratory effort, lungs clear to auscultation no respiratory distress Cardiovascular: RRR, no murmur, no edema Gastrointestinal (Abdomen): Inspection/Auscultation: abdomen normal to inspection; abdomen not distended Musculoskeletal: no cyanosis or clubbing, extremities motor strength 5/5 Head/Neck/Chest: + head abnormal to inspection (Swelling on back of head) Skin: no rashes, warm and dry Neurologic: moves all extremities and awake Psychiatric: Orientation: alert, oriented to person and cooperative Results & Data Results & Data ([facility]) Vital Signs (Past 12 Hours) Vital Signs Temp Pulse Pulse Resp BP Pulse Ox 03/17/20 15:38 56 L 03/17/20 11:43 36.5 C 48 L 20 126/70 95 03/17/20 09:56 94 H 20 129/78 93 03/17/20 09:55 70 20 119/81 89 L 03/17/20 09:30 56 L 20 163/72 H 94 03/17/20 09:29 60 20 134/70 92 03/17/20 08:14 36.7 C 52 L 20 131/74 92 03/17/20 07:25 51 L PG Care Time/CCT Total # of Minutes Spent Total Time Spent with Patient: Total time spent is greater than 50% in c oordination of care (as documented) at patient's floor/unit and/or counseling patient: Coding Level of Care Code 63506 Subseq Hosp Care Lvl 2 Diagnoses Orthostatic dizziness R42 Pneumonia due to 2019 novel coronavirus U07.1; J12.89 COVID-19 virus infection U07.1 Diabetes mellitus E11.69 Diabetes mellitus complication status: with other specified complication Diabetes mellitus retirement insulin use: without retirement use Diabetes mellitus type: type 2 Thrombocytopenia D69.6 CAD (coronary artery disease) I25.10 Associated angina: without angina Coronary Disease-Associated Artery/Lesion type: unspecified vessel or lesion type [place] vs. transplanted heart: [place] heart DVT prophylaxis Z29.9 (1) Diabetes mellitus Diabetes mellitus complication status: with other specified complication Diabetes mellitus retirement insulin use: without retirement use Diabetes mellitus type: type 2 Qualified Code(s): E11.69 - Type 2 diabetes mellitus with other specified complication (2) CAD (coronary artery disease) Associated angina: without angina Coronary Disease-Associated Artery/Lesion type: unspecified vessel or lesion type [place] vs. transplanted heart: [place] heart Qualified Code(s): I25.10 - Atherosclerotic heart disease of [place] coronary artery without angina pectoris
[2020-03-18] MEDS: NSS + 20MEQ KCL 20 MEQ/1,000 ML BAG IV SCH ×2 (05:48→13:16)
[2020-03-18 08:02] LABS: Creatinine Clr Calc Pharmacy 62.8 ml/min; Est GFR (African American) 72.8; Est GFR (Non-African American) 62.8
[2020-03-18] MEDS: LIDOCAINE 5% 1 PATCH TD SCH (08:44)
[2020-03-18] MEDS: ENOXAPARIN INJ 40 MG/0.4 ML SYR SQ SCH (08:44)
[2020-03-18] MEDS: INSULIN ASPART 100 UNITS/ML 3 ML PEN SC SCH ×2 (09:17→12:50)
--- NOTE | 2020-03-18 14:16 | Discharge Summary ---
Date of Service March 18, 2020 Admission HPI Per Admitting Provider The patient is a 74-year-old male with a past medical history including diabetes mellitus, and BPH with LUTS who presents with the above symptoms. He did undergo work-up in the emergency department including COVID-19 test which was positive, and d-dimer was elevated at 1050. He also does have a chronic indwelling Shannon catheter. Principal Diagnosis Covid 19 pneumonia Orthostatic dizziness Discharge Exam Constitutional WD/WN, vitals as above Eyes EOM intact bilaterally; no conjunctival abnormality ENMT external ear and nose normal, oropharynx normal Neck trachea midline, no thyromegaly normal visual inspection Respiratory normal respiratory effort, lungs clear to auscultation no respiratory distress Cardiovascular RRR, no murmur, no edema Gastrointestinal (Abdomen) Inspection/Auscultation: abdomen normal to inspection; abdomen not distended Musculoskeletal no cyanosis or clubbing, extremities motor strength 5/5 Head/Neck/Chest: + head abnormal to inspection (Swelling on back of head) Skin no rashes, warm and dry Neurologic moves all extremities and awake Psychiatric Orientation: alert, oriented to person and cooperative Discharge Data Allergies Allergy/AdvReac Type Severity Reaction Status Date / Time Sulfa (Sulfonamide Allergy Hives Verified 03/10/20 23:11 Antibiotics) Consultations 03/11/20 00:07 ED Decision to Admit Stat 03/16/20 16:45 Consult Cardiology Routine Ordered Studies 03/11/20 00:43 CT angio chest PE protocol Urgent 03/14/20 04:52 CT head/brain wo con Urgent Hospital Course (1) Orthostatic dizziness: First noted on 03/14. Overnight of 03/13-03/14, he had a fall while going to the bathroom and bending over. Feels he blacked out for several minutes. At that point, he felt dizzy, lightheadedness, and flushing. BP remains stable; however, the patient reports worsening symptoms over several minutes and has to lie down. - Will monitor after remdesivir done; if no improvement, will trial compression stockings. - Monitor orthostatics -> Positive on 03/17. - By 03/18, he was feeling largely back to normal. Orthostatics negative. Did well with OT and felt not to need PT by patient, OT, and RN. Discharged to home. (2) Pneumonia due to 2019 novel coronavirus: Pneumonia due to COVID 19 virus infection. - Finished remdesivir on 03/15 - Stopped antibiotics on 03/14. Two negative procalcitonins, and CXR on 03/12 already showed resolution of his Covid pneumonia. (3) COVID-19 virus infection: See above. (4) Diabetes mellitus: A1c was 7.3% this admission. - Hold metformin. - Sliding scale insulin - Blood sugars all acceptable today. (5) Thrombocytopenia: Platelets 103 upon admission. - Continue to follow closely - Now 177. Recovering. (6) CAD (coronary artery disease): CAD status post CABG. Troponins negative x 3 here. - Monitor; can discuss with his PCP regarding ASA and statin. He states he is generally anti-medicine. - Echo showed EF 50-55%. (7) DVT prophylaxis: Lovenox & SCDs - Encouraged frequent movement/leg exercises. Total Time Total Time Spent Total Time Spent (In Minutes): 35 Discharge Plan Discharge Items Patient Disposition: Home - Self-Care Reason For Visit: COVID 19 PNEUMONIA Discharge Diagnosis: Covid 19 pneumonia Activity: Resume your previous activity Non-emergency contact: Primary Care Provider Call non-emergency contact if: your symptoms worsen Follow-up/Referrals: PCP,NO [Primary Care Provider] - Diet: Carb Consistent or DM2 Addtl Attending Provider Instructions: You were admitted to the hospital after renetta the new coronavirus and getting symptoms. We treated you with remdesivir while you were here. Luckily, your fevers broke by March 12, and your breathing has remained stable throughout the course. You had a few days of dizziness and flushing. We are honestly not entirely sure whether this was due to the coronavirus or the remdesivir. This new disease is so unknown that I really have no data or papers to indicate whether coronavirus can cause orthostatic dizziness (I found one paper.) vs the remdesivir. Regardless, you have really started feeling better today, and we are ready to get you out of the hospital. For the next few days, do this: 1) Stay hydrated. Your urine should be light yellow. If it gets dark yellow or brown, you know you are dehydrated. 2) Use your compression stockings any time you are out of bed for at least 2-3 days until you are sure you are back to normal. 3) Go easy with any physical activity and/or driving for at least 3-4 days. Please follow up with your PCP next week. Given your symptom onset and improvement, I think you should be cleared to visit him by next Monday. (That would be > 10 days from symptom onset and > 3 days from last symptoms.) It would be beneficial to call your PCP's office first to be sure they are comfortable with you visiting in person. If you continue having back soreness, use hot/cold packs (interchanging them) and Tylenol as needed. Please call your PCP or come back to the hospital if you have dizziness, flushing, pass out, or have other concerning symptoms such as shortness of breath. Pending Studies at Discharge: No Stand-Alone Forms: [facility], Smoking Cessation Medications and DC Order Prescriptions: Continued metformin 500 mg tablet extended release 24 hr 500 mg PO DAILY RF: 0 Discharge Orders: Discharge Order (Routine); Ordered 03/18/20 Ordered By: Quinton Jordan/Other Patient Handouts: Managing Type 2 Diabetes, A1C Admission Data Admit Date/Time: 03/11/20 00:51 Attending Provider: Quinton Llanes Admit Provider: Alexis Blount Primary Care Provider: PCP,NO Other Providers: Quinton Llanes ; Raghavendra Moreno Other Interventions: Discharge Summary Assessment (RN) Last Done: 03/18/20 12:30 Coding Level of Care Code D/C Day Management >30 mins Diagnoses Orthostatic dizziness R42 Pneumonia due to 2019 novel coronavirus U07.1; J12.89 COVID-19 virus infection U07.1 Diabetes mellitus E11.69 Diabetes mellitus complication status: with other specified complication 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 transplanted heart: [place] heart DVT prophylaxis Z29.9
== END 2020-03-18 14:30 | disposition home or self-care (01) | DRG 177 ==
LOC: ED 20:33 → SUATTDRO 03-11 00:51 → 2N 03-11 00:51